=== PATIENT | male | born 1930 | race Caucasian/White ===

== ENCOUNTER 2016-11-16 07:14 | Inpatient (IN) | payer MEDICARE, OTHER ==
[~2016-11-16] VITALS: Ht 172.7 cm; Wt 113.0 kg
[2016-11-16] VITALS (14 sets, daily range): BP systolic 144–182; BP diastolic 74–95; PULSE 53–79; RESP 19–28; TEMP 96.3–98.2; O2SAT 94–100
[~2016-11-16 07:14] MED LIST: ASPI81TA82 PO; BENA10TA PO; BENA5TAB PO; BILB100C PO; CHOL1CAP6 PO; COUM4TAB7 PO; COUM5TAB PO; DYAZ37.52 PO; FISH1000 PO; HYDR50TA5 PO; METO25 PO; OMEP20TA PO; POTA-267 PO; POTA20IN3 PO; VITA100017 PO; [UNRECOGNIZED DRUG - CODE] PO
[2016-11-16 07:40] LABS: AUTOMATED NEUTROPHIL # 3.9 TH/MM3 (1.8-7.7); BASOPHIL # 0.2 TH/MM3 (0-0.2); BASOPHIL % 3.7 % (0.0-2.0); EOSINOPHIL # 0.1 TH/MM3 (0-0.4); EOSINOPHIL % 1.8 % (0.0-4.0); HEMATOCRIT 39.6 % (39.0-51.0); HEMO FLAGS DIFF FINAL; LYMPH % 21.1 % (9.0-44.0); LYMPHOCYTE # 1.3 TH/MM3 (1.0-4.8); MEAN CORPUSCULAR HEMOGLOBIN 30.8 PG (27.0-34.0); MEAN CORPUSCULAR HGB CONC 33.5 % (32.0-36.0); MONO % 7.4 % (0.0-8.0); PLATELET COUNT 109 TH/MM3 (150-450); RED BLOOD COUNT 4.31 MIL/MM3 (4.50-5.90); RED CELL DISTRIBUTION WIDTH 17.2 % (11.6-17.2); WHITE BLOOD COUNT 5.9 TH/MM3 (4.0-11.0)
--- NOTE | 2016-11-16 07:42 | PD ---
HPI Chief Complaint: Chest pain Time Seen by Provider: 07:23 Travel History International Travel<30 days: No (unknown) Contact w/Intl Traveler<30days: No (unknown) History of Present Illness HPI 86yo M with PMH of CHF and afib on coumadin presents to the ED with c/o left sided chest pain since 6am today. Pt states it is pressure like, constant and nonradiating. Started when he was sitting down. Associated with sob, nausea. Denies any fever, cough, vomiting, diaphoresis, weakness, numbness, abdominal pain. Pt follows with porter sample case Dr. Khanna and denies any previous heart attacks. Took aspirin 325mg PO this morning. Pt also took his lasix this morning. PFSH Past Medical History Hx Anticoagulant Therapy: Yes Heart Rhythm Problems: Yes (A-FIB) Cancer: Yes (PROSTATE) Cardiovascular Problems: Yes Chemotherapy: No Cerebrovascular Accident: Yes (TIA) Diabetes: No Endocrine: No Genitourinary: No Hepatitis: No Hiatal Hernia: No Hypertension: Yes Immune Disorder: No Musculoskeletal: No Neurologic: Yes Psychiatric: No Reproductive: No Respiratory: No Thyroid Disease: No Past Surgical History Abdominal Surgery: Yes (AGE 12 APPENDECTOMY ; 2007 LEFT INGUINAL HERNIA REPAIR) Genitourinary Surgery: Yes (2003 PROSTATE SEED IMPLANT; TUR-P) Social History Alcohol Use: No Tobacco Use: No Substance Use: No Allergies-Medications (Allergen,Severity, Reaction): Coded Allergies: Penicillin (Unverified Allergy, Severe, Hives, 11/16/16) Reported Meds & Prescriptions Reported Meds & Active Scripts Active Reported Magnesium 400 Mg Tab 400 Mg PO DAILY Aspirin EC (Aspirin) 325 Mg Tabdr 325 Mg PO DAILY Zinc 50 Mg Tab 50 Mg PO DAILY Furosemide 40 Mg Tab 40 Mg PO DAILY Potassium Chloride ER (Potassium Chloride) 20 Meq Tab 20 Meq PO BID Benazepril (Benazepril HCl) 20 Mg Tab 20 Mg PO DAILY Warfarin 4 Mg Tab 4.5 Mg PO DAILY Metoprolol Tartrate 50 Mg Tab 50 Mg PO BID Review of Systems Except as stated in HPI: all other systems reviewed are Neg Physical Exam Narrative GENERAL: 86yo M in mild distress. SKIN: Warm and dry. HEAD: Atraumatic. Normocephalic. NECK: Trachea midline. No JVD. CARDIOVASCULAR: Regular rate and rhythm. No murmur appreciated. RESPIRATORY: + accessory muscle use. Clear to auscultation. Breath sounds equal bilaterally. GASTROINTESTINAL: Abdomen soft, non-tender, nondistended. No rebound tenderness or guarding. MUSCULOSKELETAL: No obvious deformities. No clubbing. No cyanosis. +Bilateral lower extremity pitting edema. NEUROLOGICAL: Awake and alert. No obvious cranial nerve deficits. Motor grossly within normal limits. Normal speech. PSYCHIATRIC: Appropriate mood and affect; insight and judgment normal. Data Data Last Documented VS Vital Signs Date Time Temp Pulse Resp B/P Pulse Ox O2 Delivery O2 Flow Rate FiO2 11/16/16 07:38 170/79 11/16/16 07:37 98 Nasal Cannula 2 11/16/16 07:37 71 20 11/16/16 07:35 98.0 Orders Basic Metabolic Panel (Bmp) (11/16/16 07:31) B-Type Natriuretic Peptide (11/16/16 07:31) Ckmb (Isoenzyme) Profile (11/16/16 07:31) Complete Blood Count With Diff (11/16/16 07:31) Magnesium (Mg) (11/16/16 07:31) Prothrombin Time / Inr (Pt) (11/16/16 07:31) Act Partial Throm Time (Ptt) (11/16/16 07:31) Troponin I (11/16/16 07:31) Chest, Single Ap (11/16/16 07:31) Ecg Monitoring (11/16/16 07:31) Bilateral Bp Monitoring (11/16/16 07:31) Iv Access Insert/Monitor (11/16/16 07:31) Oximetry (11/16/16 07:31) Oxygen Administration (11/16/16 07:31) Sodium Chloride 0.9% Flush (Ns Flush) (11/16/16 07:45) Nitroglycerin Sl (Nitrostat Sl) (11/16/16 07:45) Furosemide Inj (Lasix Inj) (11/16/16 08:00) Potassium Chloride (Kcl) (11/16/16 08:00) Admit Order (Ed Use Only) (11/16/16 08:39) Labs Laboratory Tests Test 11/16/16 07:25 White Blood Count 5.9 TH/MM3 Red Blood Count 4.31 MIL/MM3 Hemoglobin 13.3 GM/DL Hematocrit 39.6 % Mean Corpuscular Volume 92.0 FL Mean Corpuscular Hemoglobin 30.8 PG Mean Corpuscular Hemoglobin 33.5 % Concent Red Cell Distribution Width 17.2 % Platelet Count 109 TH/MM3 Mean Platelet Volume 8.9 FL Neutrophils (%) (Auto) 66.0 % Lymphocytes (%) (Auto) 21.1 % Monocytes (%) (Auto) 7.4 % Eosinophils (%) (Auto) 1.8 % Basophils (%) (Auto) 3.7 % Neutrophils # (Auto) 3.9 TH/MM3 Lymphocytes # (Auto) 1.3 TH/MM3 Monocytes # (Auto) 0.4 TH/MM3 Eosinophils # (Auto) 0.1 TH/MM3 Basophils # (Auto) 0.2 TH/MM3 CBC Comment DIFF FINAL Differential Comment Prothrombin Time 17.2 SEC Prothromb Time International 1.5 RATIO Ratio Activated Partial 38.3 SEC Thromboplast Time Sodium Level 144 MEQ/L Potassium Level 3.2 MEQ/L Chloride Level 109 MEQ/L Carbon Dioxide Level 26.2 MEQ/L Anion Gap 9 MEQ/L Blood Urea Nitrogen 24 MG/DL Creatinine 1.20 MG/DL Estimat Glomerular Filtration 57 ML/MIN Rate Random Glucose 139 MG/DL Calcium Level 8.9 MG/DL Magnesium Level 2.4 MG/DL Total Creatine Kinase 39 U/L Troponin I 0.07 NG/ML B-Type Natriuretic Peptide 479 PG/ML MDM Medical Decision Making Medical Screen Exam Complete: Yes Emergency Medical Condition: Yes Interpretation(s) EKG: NSR 92bpm. +PVC. LAD. LBBB, similar to previous 11/2014. No concordance. Laboratory Tests Test 11/16/16 07:25 White Blood Count 5.9 TH/MM3 (4.0-11.0) Red Blood Count 4.31 MIL/MM3 (4.50-5.90) Hemoglobin 13.3 GM/DL (13.0-17.0) Hematocrit 39.6 % (39.0-51.0) Mean Corpuscular Volume 92.0 FL (80.0-100.0) Mean Corpuscular Hemoglobin 30.8 PG (27.0-34.0) Mean Corpuscular Hemoglobin 33.5 % Concent (32.0-36.0) Red Cell Distribution Width 17.2 % (11.6-17.2) Platelet Count 109 TH/MM3 (150-450) Mean Platelet Volume 8.9 FL (7.0-11.0) Neutrophils (%) (Auto) 66.0 % (16.0-70.0) Lymphocytes (%) (Auto) 21.1 % (9.0-44.0) Monocytes (%) (Auto) 7.4 % (0.0-8.0) Eosinophils (%) (Auto) 1.8 % (0.0-4.0) Basophils (%) (Auto) 3.7 % (0.0-2.0) Neutrophils # (Auto) 3.9 TH/MM3 (1.8-7.7) Lymphocytes # (Auto) 1.3 TH/MM3 (1.0-4.8) Monocytes # (Auto) 0.4 TH/MM3 (0-0.9) Eosinophils # (Auto) 0.1 TH/MM3 (0-0.4) Basophils # (Auto) 0.2 TH/MM3 (0-0.2) CBC Comment DIFF FINAL Differential Comment Prothrombin Time 17.2 SEC (9.8-11.6) Prothromb Time International 1.5 RATIO Ratio Activated Partial 38.3 SEC Thromboplast Time (24.3-30.1) Sodium Level 144 MEQ/L (136-145) Potassium Level 3.2 MEQ/L (3.5-5.1) Chloride Level 109 MEQ/L (98-107) Carbon Dioxide Level 26.2 MEQ/L (21.0-32.0) Anion Gap 9 MEQ/L (5-15) Blood Urea Nitrogen 24 MG/DL (7-18) Creatinine 1.20 MG/DL (0.60-1.30) Estimat Glomerular Filtration 57 ML/MIN (>89) Rate Random Glucose 139 MG/DL (74-106) Calcium Level 8.9 MG/DL (8.5-10.1) Magnesium Level 2.4 MG/DL (1.5-2.5) Total Creatine Kinase 39 U/L (39-308) Troponin I 0.07 NG/ML (0.02-0.05) B-Type Natriuretic Peptide 479 PG/ML (0-100) Differential Diagnosis ACS vs. CHF exacerbation vs. PNA Narrative Course 86yo M with typical chest pain concerning for ACS. Labs reviewed, no leukocytosis. K: 3.2, replaced orally with 60mE1 KCl. Troponin mildly elevated at 0.07, will trend. BNP 479. INR subtherapeutic at 1.5. CXR: moderate congestive heart failure. Pt given lasix 40mg IV here in the ED. Pt also given sublingual nitro for chest pain. Discussed with Dr. Khanna who recommended to trend troponin and transfer pt to [facility] for possible cardiac cath. Discussed with JAMARI Hdez who covers hepas. Diagnosis Primary Impression: Chest pain Qualified Code: R07.9 - Chest pain, unspecified type Admitting Information Admitting Physician Requests: it Sera Terrazas DO Nov 16, 2016 07:42
[2016-11-16] MEDS ORDERED: SODIUM CHLORIDE 0.9% FLUSH 5 ML FLUSH IVF PRN ×2 (07:45→08:45)
[2016-11-16] MEDS ORDERED: NITROGLYCERIN 0.4 MG SL 25 TABS/BTL SL PRN ×2 (07:45→11:30)
[2016-11-16 07:47] LABS: POTASSIUM 3.2 MEQ/L (3.5-5.1)
[2016-11-16 07:50] LABS: BICARBONATE 26.2 MEQ/L (21.0-32.0); MAGNESIUM 2.4 MG/DL (1.5-2.5)
[2016-11-16] MEDS ORDERED: FURO40TA PO (07:51)
[2016-11-16] MEDS ORDERED: ASPI325T33 PO (07:51)
[2016-11-16] MEDS ORDERED: POTA-163 PO (07:51)
[2016-11-16] MEDS ORDERED: BENA20TA PO (07:51)
[2016-11-16] MEDS ORDERED: WARF-20 PO (07:51)
[2016-11-16] MEDS ORDERED: METO50TA PO (07:51)
[2016-11-16] MEDS ORDERED: ZINC50TA PO (07:51)
[2016-11-16] MEDS ORDERED: MAGN1TAB14 PO (07:51)
--- NOTE | 2016-11-16 07:53 | RADHPO ---
EXAM DATE/TIME: 11/16/2016 07:48 [facility] COMPARISON: CHEST SINGLE AP, December 09, 2015, 10:42. INDICATIONS : Short of breath, chest pressure. MEDICAL HISTORY : Hypertension. Congestive heart failure. SURGICAL HISTORY : None. ENCOUNTER: Initial ACUITY: 2 days PAIN SCORE: 1/10 LOCATION: Bilateral chest FINDINGS: There is cardiomegaly with moderate congestive failure. There is no evidence of consolidation or ple ural effusion. The portion of the bony skeleton visualized is unremarkable. CONCLUSION: Moderate congestive failure. Sg Ordaz MD FACR on November 16, 2016 at 7:51 Board Certified Radiologist. This report was verified electronically.
[2016-11-16 07:58] LABS: APTT (PATIENT) 38.3 SEC (24.3-30.1); INTERNATIONAL NORMALIZED RATIO 1.5 RATIO; PROTHROMBIN TIME - PATIENT 17.2 SEC (9.8-11.6)
[2016-11-16] MEDS ORDERED: FUROSEMIDE 40 MG/4 ML VIAL IV PUSH ONE ×2 (08:00→08:45)
[2016-11-16] MEDS ORDERED: POTASSIUM CHLORIDE 20 MEQ CONTROLLED RELEASE TAB PO ONE (08:00)
[2016-11-16] MEDS ORDERED: POTASSIUM CHLORIDE 20 MEQ CONTROLLED RELEASE TAB PO SCH (09:00)
[2016-11-16] MEDS: ASPIRIN EC 325 MG TABEC PO SCH (09:15)
[2016-11-16] MEDS: SODIUM CHLORIDE 0.9% FLUSH 5 ML FLUSH IVF SCH ×2 (09:45→21:59)
[2016-11-16] MEDS ORDERED: DO NOT ADM ANY ANTICOAGULANT DRUGS XX PRN (10:45)
[2016-11-16] MEDS ORDERED: ENOXAPARIN SODIUM 100 MG/ML SYRINGE SQ ONE (11:30)
--- NOTE | 2016-11-16 11:31 | HHI.HP ---
[facility] Primary [facility] Physician Ishan Cruz MD Admission Diagnosis Chest pain Diagnoses: (1) Chest pain Diagnosis: Principal (2) Acute on chronic diastolic congestive heart failure Diagnosis: Principal (3) Elevated troponin Diagnosis: Principal (4) Lower extremity edema Diagnosis: Secondary (5) Atrial fibrillation Diagnosis: Secondary (6) Hypertension Diagnosis: Secondary (7) Hyperlipidemia Diagnosis: Secondary Chief Complaint: Chest pain Travel History International Travel<30 Days: No (unknown) Contact w/Intl Traveler <30 Da: No (unknown) Traveled to Known Affected Are: No History of Present Illness 86-year-old male with known history of hypertension, hyperlipidemia, chronic atrial fibrillation, history of prostate cancer, history of CVA, gastroesophageal reflux who presented to hospital because of chest pain. Patient does have rather complex cardiac history in which he usually does not leave the house on a daily basis. Usually sits in his chair throughout the day , sleeps in bed. They do have a healthcare attendant that is their on a daily basis. Apparently this morning at approximately 6 AM the patient was watching the news and started developing a pressure type sensation in left part of his chest with associated nausea. Patient denies any vomiting, diaphoresis, radiation of discomfort. Patient describes the pain as a 2/10 on a pain scale. Patient has shortness of breath all the time so he could not indicate it is associated with his chest discomfort. However he has had worsening shortness of breath over the last week. Patient has chronically swollen lower extremities in which he cannot indicated they have gotten larger. Patient denies any orthopnea, could not indicate any worsening dyspnea on exertion. Patient was brought to the hospital by family member. Had evaluation done which does show signs of congestive heart failure, elevated troponin. ER physician did contact patient's granulator tender Dr. Khanna, who recommended patient be admitted at [facility] for possible cardiac catheterization. At the time evaluating the patient he still has shortness of breath. He is no longer experiencing chest discomfort. That resolved once he got to the hospital. Review of Systems Constitutional: DENIES: Diaphoretic episodes, Fatigue, Fever, Weight gain, Weight loss, Chills, Dizziness, Change in appetite, Night Sweats Eyes: DENIES: Blurred vision, Diplopia, Eye inflammation, Eye pain, Vision loss , Double Vision Ears, nose, mouth, throat: DENIES: Vertigo, Nasal discharge, Throat pain, Ear Pain, Running Nose, Sinus Pain Respiratory: COMPLAINS OF: Shortness of breath, DENIES: Apneas, Cough, Snoring , Wheezing, Hemoptysis, Sputum production Cardiovascular: COMPLAINS OF: Chest pain, DENIES: Palpitations, Syncope, Dyspnea on Exertion, PND, Lower Extremity Edema, Orthopnea, Claudication Gastrointestinal: DENIES: Abdominal pain, Black stools, Bloody stools, Constipation, Diarrhea, Nausea, Vomiting, Difficulty Swallowing, Anorexia Neurologic: DENIES: Abnormal gait, Headache, Localized weakness, Paresthesias, Seizures, Speech Problems, Tremor, Poor Balance Psychiatric: DENIES: Anxiety, Confusion, Mood changes, Depression Past Family Social History Past Medical History Hypertension Hyperlipidemia chronic afibrillation Gastroesophageal reflux History of prostate cancer History of CVA Past Surgical History Selective left femoral angiography Appendectomy Left inguinal hernia repair Prostate seed implant TURP Reported Medications Reported Meds & Active Scripts Active Reported Magnesium 400 Mg Tab 400 Mg PO DAILY Aspirin EC (Aspirin) 325 Mg Tabdr 325 Mg PO DAILY Zinc 50 Mg Tab 50 Mg PO DAILY Furosemide 40 Mg Tab 40 Mg PO DAILY Potassium Chloride ER (Potassium Chloride) 20 Meq Tab 20 Meq PO BID Benazepril (Benazepril HCl) 20 Mg Tab 20 Mg PO DAILY Warfarin 4 Mg Tab 4.5 Mg PO DAILY Metoprolol Tartrate 50 Mg Tab 50 Mg PO BID Allergies: Coded Allergies: Penicillin (Unverified Allergy, Severe, Hives, 11/16/16) Family History Reviewed and grossly unremarkable. Patient states that he is oldest of all the brothers who are all in good health Social History Patient denies any tobacco, alcohol or illicit drugs Physical Exam Vital Signs Vital Signs Date Time Temp Pulse Resp B/P Pulse Ox O2 Delivery O2 Flow Rate FiO2 11/16/16 09:50 53 22 157/80 96 Nasal Cannula 4 11/16/16 07:38 170/79 11/16/16 07:37 98 Nasal Cannula 2 11/16/16 07:37 71 20 160/74 96 Nasal Cannula 2 11/16/16 07:35 98.0 79 20 170/79 96 11/16/16 07:35 79 20 96 Nasal Cannula 4 Physical Exam GENERAL: Well-developed, well-nourished, in no acute distress. alert and orientated HEENT: Head is normocephalic without any lesions or masses noted. Facial features are symmetric. Eyes: Pupils equal round reactive to light. Extraocular muscles are intact. Conjunctivae were clear. Oropharyngeal: Pharynx without any erythema edema. Tongue is midline without deviation. Buccal mucosa is moist without any masses or lesions NECK: Supple without any masses. Trachea midline no deviation. No JVD, no bruits are appreciated CARDIAC: Regular rhythm, regular rate. S1/S2 are heard. 2/6 ejection murmur, no gallops or rubs. LUNGS: Crackles noted in the bases. No wheeze, rhonchi or rales. No use of accessory muscles on inspiration or expiration. ABDOMEN: Soft, nontender. Nondistended. Bowel sounds heard in all 4 quadrants. No organomegaly or masses. Negative rebound, negative guarding EXTREMITIES:pulses are equal bilaterally. No cyanosis or clubbing. Significant lower extremity edema right 3+ greater than left 2+ NEUROLOGY: Mood and affect appear appropriate. Cranial nerves II through XII grossly intact. Muscle strength 5/5 in upper and lower extremities bilaterally. Deep tendon reflexes are 2+ in upper and lower extremities bilaterally. Laboratory Laboratory Tests Test 11/16/16 07:25 White Blood Count 5.9 Red Blood Count 4.31 Hemoglobin 13.3 Hematocrit 39.6 Mean Corpuscular Volume 92.0 Mean Corpuscular Hemoglobin 30.8 Mean Corpuscular Hemoglobin 33.5 Concent Red Cell Distribution Width 17.2 Platelet Count 109 Mean Platelet Volume 8.9 Neutrophils (%) (Auto) 66.0 Lymphocytes (%) (Auto) 21.1 Monocytes (%) (Auto) 7.4 Eosinophils (%) (Auto) 1.8 Basophils (%) (Auto) 3.7 Neutrophils # (Auto) 3.9 Lymphocytes # (Auto) 1.3 Monocytes # (Auto) 0.4 Eosinophils # (Auto) 0.1 Basophils # (Auto) 0.2 CBC Comment DIFF FINAL Differential Comment Prothrombin Time 17.2 Prothromb Time International 1.5 Ratio Activated Partial 38.3 Thromboplast Time Sodium Level 144 Potassium Level 3.2 Chloride Level 109 Carbon Dioxide Level 26.2 Anion Gap 9 Blood Urea Nitrogen 24 Creatinine 1.20 Estimat Glomerular Filtration 57 Rate Random Glucose 139 Calcium Level 8.9 Magnesium Level 2.4 Total Creatine Kinase 39 Troponin I 0.07 B-Type Natriuretic Peptide 479 Result Diagram: 11/16/1672411/16/16724 Imaging Last Impressions Chest X-Ray 11/16/16730 Signed Impressions: Service Date/Time: Wednesday, November 16, 2016 07:48 - CONCLUSION: Moderate congestive failure. Sg Ordaz MD FACR Assessment and Plan Assessment and Plan Chest pain with elevated troponin Continue trending cardiac enzymes to rule out any acute coronary event Continue evaluate serial EKGs to evaluate for any changes ER physician discussed with Dr. Khanna who recommended the patient be admitted to the main for possible catheterization. Dr. Khanna was consulted Continue aspirin, beta maki, nitroglycerin as needed, IRMA inhibitor, give 1 dose Lovenox Obtain lipid panel Acute on chronic diastolic congestive heart failure Chest x-ray does show signs of mild congestive failure BNP 479 Continue diuresis with Lasix 40 mg IV every 12 hours Continue IRMA inhibitor Patient with previous echocardiogram 12/10/15. Does show systolic function lower limits. Ejection fraction 50-50%. Grade 1 diastolic dysfunction. Mild- to-moderate aortic regurgitation, mild mitral valve regurgitation, right ventricle mildly dilated, PA peak pressure 80 mmhg Obtain echocardiogram Chronic atrial fibrillation, rate controlled Resumed beta maki and anticoagulation with Coumadin INR 1.5, will give Lovenox 1 dose, monitor PT/INR Hypertension -Resume home medications DVT prevention -patient anticoagulated with Coumadin, INR 1.5, Written by Alberto Hdez PA-C, acting as scribe for Dr. Carvajal on 11/16/16 at 1120. The documentation accurately reflects the work and decisions performed face-to- face by Dr. Carvajal on 11/16/16 at 1120. Physician Certification 2 Midnight Certification Type: Admission for Inpatient Services Order for Inpatient Services The services are ordered in accordance with Medicare regulations or non- Medicare payer requirements, as applicable. In the case of services not specified as inpatient-only, they are appropriately provided as inpatient services in accordance with the 2-midnight benchmark. Estimated LOS (days): 3 days is the estimated time the patient will need to remain in the hospital, assuming treatment plan goals are met and no additional complications. Post-Hospital Plan: Not yet determined Problem Qualifiers (1) Chest pain: Qualified Code: R07.9 - Chest pain, unspecified type (2) Lower extremity edema: Qualified Code: R60.0 - Bilateral edema of lower extremity (3) Atrial fibrillation: Qualified Code: I48.91 - Atrial fibrillation, unspecified type (4) Hypertension: Qualified Code: I15.9 - Secondary hypertension (5) Hyperlipidemia: Qualified Code: E78.5 - Hyperlipidemia, unspecified hyperlipidemia type Alberto Hdez Nov 16, 2016 11:31
[2016-11-16] MEDS: FUROSEMIDE 40 MG/4 ML VIAL IVP SCH (18:30)
[2016-11-16] MEDS ORDERED: METOPROLOL TARTRATE 50 MG TAB PO SCH (21:00)
[2016-11-16] MEDS: POTASSIUM CHLORIDE 20 MEQ CONTROLLED RELEASE TAB PO SCH (21:59)
[2016-11-17] VITALS (14 sets, daily range): BP systolic 118–187; BP diastolic 66–81; PULSE 60–210; RESP 24–38; TEMP 98–103; O2SAT 93–98
[2016-11-17 04:27] LABS: INTERNATIONAL NORMALIZED RATIO 1.6 RATIO; PROTHROMBIN TIME - PATIENT 18.1 SEC (9.8-11.6)
[2016-11-17 04:37] LABS: BASOPHIL # 0.1 TH/MM3 (0-0.2); BASOPHIL % 1.2 % (0.0-2.0); EOSINOPHIL # 0.2 TH/MM3 (0-0.4); EOSINOPHIL % 1.8 % (0.0-4.0); HEMATOCRIT 40.4 % (39.0-51.0); HEMO FLAGS DIFF FINAL; LYMPH % 11.5 % (9.0-44.0); MEAN CELL VOLUME 91.6 FL (80.0-100.0); MEAN CORPUSCULAR HEMOGLOBIN 31.3 PG (27.0-34.0); MEAN CORPUSCULAR HGB CONC 34.2 % (32.0-36.0); MONO % 7.6 % (0.0-8.0); NEUT % 77.9 % (16.0-70.0); PLATELET COUNT 128 TH/MM3 (150-450); RED BLOOD COUNT 4.41 MIL/MM3 (4.50-5.90); RED CELL DISTRIBUTION WIDTH 17.5 % (11.6-17.2)
[2016-11-17 05:28] LABS: POTASSIUM 4.3 MEQ/L (3.5-5.1)
[2016-11-17] MEDS: ONDANSETRON HCL 4 MG/2 ML VIAL IV PUSH PRN ×2 (06:11→18:05)
--- NOTE | 2016-11-17 06:23 | HHI.PR ---
Addendum To [facility] Progress Not Reason for addendum: Additonal documentation (The pt was transferred to the main hospital after cardiology was made aware of EKG changes. The nut tightener stated that no intervention was indicated but that the pt should be transferred to the main hospital. The pt had bloody output from his Nuñez and started dryheaving. He was also tachycardic. His Lopressor was retimed. He was started on a heparin gtt. A urology consult was placed. Hemoglobin has been stable. Cardiology will follow up with pt this morning. ) Galdino Cuevas DO Nov 17, 2016 06:23
[2016-11-17] MEDS: METOPROLOL TARTRATE 50 MG TAB PO SCH ×3 (06:30→20:07)
[2016-11-17] MEDS ORDERED: HEPARIN-D5W INJ 250 ML IV SCH (06:30)
[2016-11-17] MEDS ORDERED: ENALAPRILAT 1.25 MG/ML VIAL IV PUSH PRN (06:30)
[2016-11-17 06:46] LABS: BLOOD GAS BASE EXCESS -4.1 mmol/L (-2-2); BLOOD GAS CARBOXYHEMOGLOBIN 1.5 % (0-4); BLOOD GAS HCO3 19 mmol/L (22-26); BLOOD GAS METHEMOGLOBIN 0.7 % (0-2); BLOOD GAS O2 HGB SATURATION 89 % (90-100); BLOOD GAS OXYGEN CONTENT 17.1 Vol % (12.0-20.0); BLOOD GAS PCO2 30 mmHg (38-42); BLOOD GAS PO2 60 mmHg (61-120); BLOOD GAS TOTAL HGB 13.7 G/DL (12.0-16.0); TEMP CORR TO 98.6
[2016-11-17 06:48] LABS: CRITICAL VALUE YES; OXYGEN DEVICE BiPAP
[2016-11-17 06:49] LABS: DRAW SITE RT RADIAL; LITER FLOW 7 L/M; NUMBER OF ARTERIAL PUNCTURES 1; STAT YES; ULNAR PULSE PRESENT; VENT SETTINGS CPAP OF 10
--- NOTE | 2016-11-17 07:14 | RADRPT ---
EXAM DATE/TIME: 11/17/2016 06:45 [facility] COMPARISON: CHEST SINGLE AP, November 16, 2016, 7:48. INDICATIONS : Shortness of breath. MEDICAL HISTORY : Hypertension. Congestive heart failure. SURGICAL HISTORY : None. ENCOUNTER: Subsequent ACUITY: 2 days PAIN SCORE: Non-responsive. LOCATION: Bilateral chest FINDINGS: A single view of the chest demonstrates cardiomegaly with increased pulmonary vascularity and interst itial edema. There is some minimal bibasilar airspace disease. The cardiomediastinal contours are unr emarkable. Osseous structures are intact. CONCLUSION: Cardiomegaly with interstitial edema and bibasilar airspace disease, consistent with CHF. There is sl ight improvement on current study. Osito Gomez MD on November 17, 2016 at 7:11 Board Certified Radiologist. This report was verified electronically.
[2016-11-17] MEDS ORDERED: MORPHINE SULFATE 4 MG/ML INJ IV PUSH PRN (08:00)
[2016-11-17] MEDS: FUROSEMIDE 40 MG/4 ML VIAL IVP SCH ×2 (08:14→18:00)
[2016-11-17] MEDS ORDERED: LIDOCAINE 2% JELLY 5 ML TUBE OTHER SCH (08:45)
[2016-11-17] MEDS: POTASSIUM CHLORIDE 20 MEQ CONTROLLED RELEASE TAB PO SCH ×2 (09:00→20:07)
[2016-11-17] MEDS: SODIUM CHLORIDE 0.9% FLUSH 5 ML FLUSH IVF SCH ×2 (09:00→20:07)
[2016-11-17] MEDS: ASPIRIN EC 325 MG TABEC PO SCH (09:00)
[2016-11-17] MEDS: LISINOPRIL 20 MG TAB PO SCH (09:00)
[2016-11-17 09:03] LABS: APTT (PATIENT) 30.4 SEC (24.3-30.1)
[2016-11-17] MEDS ORDERED: LIDOCAINE HCL 2% JELLY 5 ML SYRINGE TOPICAL ONE (09:15)
[2016-11-17] MEDS: ACETAMINOPHEN 1000 MG/100 ML VIAL IV PRN (09:55)
--- NOTE | 2016-11-17 11:49 | HHI.PR ---
Subjective Remarks with some sob although in no acute distress. had a fever of 103 earlier today. denies chest pain. d/w the RN. family at the bedside. Objective Vitals Vital Signs Date Time Temp Pulse Resp B/P Pulse Ox O2 Delivery O2 Flow Rate FiO2 11/17/16 10:00 89 11/17/16 08:00 103.0 210 26 172/79 97 11/17/16 08:00 134 11/17/16 06:00 124 11/17/16 04:00 98.0 78 28 187/78 94 11/17/16 04:00 78 11/17/16 02:00 60 11/17/16 00:57 98 BiPAP 2.00 11/17/16 00:00 98.0 68 24 152/70 95 11/17/16 00:00 68 11/16/16 23:15 98.0 58 25 162/77 96 11/16/16 20:30 68 20 161/80 97 11/16/16 20:00 96.3 69 28 182/95 95 11/16/16 19:59 76 11/16/16 19:53 94 Nasal Cannula 2.00 11/16/16 16:50 98 Nasal Cannula 2.00 11/16/16 16:30 99 Nasal Cannula 4.00 11/16/16 16:00 98.2 59 19 144/82 97 11/16/16 13:30 96.4 66 20 160/88 95 11/16/16 12:40 68 20 171/84 100 Nasal Cannula 4 I/O 11/16/16 11/16/16 11/16/16 11/17/16 11/17/16 11/17/16 07:00 15:00 23:00 07:00 15:00 23:00 Intake Total 240 ml Output Total 300 ml 500 ml 200 ml Balance -300 ml -500 ml 40 ml Intake Oral 240 ml Output Urine Total 300 ml 500 ml 200 ml Bladder Scan Volume Amount 186 ml 294 ml # Bowel Movements 1 0 2 Result Diagram: 11/17/16 0355 11/17/16 0355 Imaging Last Impressions Chest X-Ray 11/17/16 0000 Signed Impressions: Service Date/Time: Thursday, November 17, 2016 06:45 - CONCLUSION: Cardiomegaly with interstitial edema and bibasilar airspace disease, consistent with CHF. There is slight improvement on current study. Osito Gomez MD Objective Remarks GENERAL: with some sob, in no apparent distress. CARDIOVASCULAR: Regular rate and regular rhythm without murmurs, gallops, or rubs. RESPIRATORY: Clear to auscultation. Breath sounds equal bilaterally. No wheezes , rales, or rhonchi. GASTROINTESTINAL: Abdomen soft, non-tender, nondistended. Normal, active bowel sounds MUSCULOSKELETAL: Extremities without clubbing, cyanosis, or edema. NEURO: Alert & Oriented x4 to person, place, time, situation. Moves all ext x4 Procedures esquivel insertion and urethral dilatation Medications and IVs Current Medications IV Flush (NS Flush) 2 ml UNSCH PRN IVF FLUSH AFTER USING IV ACCESS; Start 11/16 at 07:45; Stop 11/16/16 at 08:51; Status DC Nitroglycerin (Nitrostat Sl) 0.4 mg Q5M PRN SL CHEST PAIN; Start 11/16/16 at 07 :45; Stop 11/16/16 at 11:41; Status DC Furosemide (Lasix Inj) 40 mg ONCE ONCE IV PUSH ; Start 11/16/16 at 08:00; Stop 11/16/16 at 08:00; Status DC Potassium Chloride (KCl) 60 meq ONCE ONCE PO Last administered on 11/16/16 09 :44; Start 11/16/16 at 08:00; Stop 11/16/16 at 08:01; Status DC Furosemide (Lasix Inj) 40 mg ONCE ONCE IV PUSH Last administered on 11/16/16 09:44; Start 11/16/16 at 08:45; Stop 11/16/16 at 08:46; Status DC IV Flush (NS Flush) 2 ml BID IVF Last administered on 11/17/16 09:00; Start at 09:00 IV Flush (NS Flush) 2 ml UNSCH PRN IVF FLUSH AFTER USING IV ACCESS Last administered on 11/16/16 18:33; Start 11/16/16 at 08:45 Furosemide (Lasix Inj) 40 mg BID@,18 IVP Last administered on 11/17/16 08:14 ; Start 11/16/16 at 18:00 Potassium Chloride (KCl) 20 meq BID PO ; Start 11/16/16 at 09:00; Stop 11/16/16 at 09:08; Status DC Potassium Chloride (KCl) 20 meq BID PO Last administered on 11/16/16 21:59; Start 11/16/16 at 21:00 Aspirin (Ecotrin Ec) 325 mg DAILY PO ; Start 11/16/16 at 09:15 Lisinopril (Prinivil) 20 mg DAILY PO ; Start 11/17/16 at 09:00 Metoprolol Tartrate (Lopressor) 50 mg BID PO Last administered on 11/16/16 21: 59; Start 11/16/16 at 21:00; Stop 11/17/16 at 06:17; Status DC Warfarin Sodium (Coumadin) 4.5 mg DAILY@16 PO ; Start 11/17/16 at 16:00; Stop at 16:00; Status DC Miscellaneous Information ALL NURSING DEPARTME... UNSCH PRN XX SEE LABEL COMMENTS; Start 11/16/16 at 10:45; Stop 11/17/16 at 10:44; Status DC Patient Medication Teaching (Coumadin Booklet) 1 ONCE ONCE XX Last administered on 11/16/16 16:49; Start 11/16/16 at 16:00; Stop 11/17/16 at 07:34 ; Status DC Enoxaparin Sodium (Lovenox Inj) 100 mg ONCE ONCE SQ Last administered on 12:33; Start 11/16/16 at 11:30; Stop 11/16/16 at 11:40; Status DC Nitroglycerin (Nitrostat Sl) 0.4 mg Q5M PRN SL CHEST PAIN; Start 11/16/16 at 11 :30 Ondansetron HCl (Zofran Inj) 4 mg Q6HR PRN IV PUSH NAUSEA OR VOMITING Last administered on 11/17/16 06:11; Start 11/17/16 at 06:15 Metoprolol Tartrate 50 mg 50 mg BID PO ; Start 11/17/16 at 06:30 Heparin Sodium/ Dextrose (Heparin-D5W Inj) 250 ml @ 0 mls/hr TITRATE IV ; Start 11/17/16 at 06:30; Stop 11/17/16 at 07:34; Status DC Enalaprilat (Vasotec Inj) 1.25 mg Q6H PRN IV PUSH SBP> OR = 180, DBP> OR = 100 ; Start 11/17/16 at 06:30 Morphine Sulfate (Morphine Inj) 2 mg Q15M PRN IV PUSH any pain 1-10 Last administered on 11/17/16 08:14; Start 11/17/16 at 08:00 Lidocaine HCl (Xylocaine 2% Jelly) 1 applic MECHANICAL SYSTEMS ENGINEER OTHER ; Start 11/17/16 at 08:45; Stop 11/18/16 at 08:44 Lidocaine HCl (Xylocaine 2% Jelly) 5 ml ONCE ONCE TOPICAL ; Start 11/17/16 at 09:15; Stop 11/17/16 at 09:16; Status DC Acetaminophen (Ofirmev Inj) 1,000 mg Q12H PRN IV TEMPERATURE > 101.1 F Last administered on 11/17/16 09:55; Start 11/17/16 at 09:45 A/P Assessment and Plan A/P -STEMI Continue aspirin, beta maki, nitroglycerin as needed, IRMA inhibitor. -anticoagulation on hold because of hematuria Obtain lipid panel Acute on chronic diastolic congestive heart failure Chest x-ray does show signs of mild congestive failure Continue diuresis with Lasix 40 mg IV every 12 hours Continue IRMA inhibitor Patient with previous echocardiogram 12/10/15. Does show systolic function lower limits. Ejection fraction 50-50%. Grade 1 diastolic dysfunction. Mild- to-moderate aortic regurgitation, mild mitral valve regurgitation, right ventricle mildly dilated, PA peak pressure 80 mmhg Obtain echocardiogram Hematuria s/p esquivel cath insertion and urethral dilatation in OR anticoagulation on hold urology following. fever- suspect UTI start work up with obtaining the urine and blood cultures-start IV Abx empirically- will monitor temps CXR with improved CHF Chronic atrial fibrillation, rate controlled Resumed beta maki - anticoagulation on hold due to hematuria Hypertension -Resumed home medications DVT prevention -SCD's will keep in ICU. planer operator consulted. Milad Gates MD Nov 17, 2016 11:49
--- NOTE | 2016-11-17 11:55 | MH ---
cc: CALLIE BEAN DATE OF ADMISSION: 11/16/2016 ADMITTING DIAGNOSIS: Attending operative bladder mass. HISTORY AND PHYSICAL Inpatient heart rate Carina Garber CRD wide ALLERGIES Mr. Lopez is a pleasant 86-year-old male history of prostate cancer presents with a chest pain and is ruling in for myocardial infarction. Apparently a Nuñez was attempted down to [facility] and the Nuñez was blown up in the urethra. He has been having blood around the Nuñez catheter and a Nuñez catheter was not draining and it is unable to be irrigated. Urology was consulted to place a Nuñez catheter at the bedside I attempted a 16 to day which would not pass the prostate and tried a Bard the urethral catheter set and was unable to pass small filiformes into the urethra. The patient will need a the operating room emergently to have a cystoscopy and Nuñez catheter placed over a wire. PAST MEDICAL HISTORY: 1. His medical history includes hypertension. 2. Hyperlipidemia. 3. Chronic atrial fibrillation. 4. Gastroesophageal reflux disease. 5. Prostate cancer. 5. History of cerebrovascular accident. PAST SURGICAL HISTORY: Appendectomy. Transurethral resection of the prostate. Prostatic seed implantation. Left femoral angiography. MEDICATIONS: Please refer to the chart. ALLERGIES PENICILLIN SOCIAL HISTORY Denies any smoking, drinking using drugs. FAMILY HISTORY: family history is noncontributory. REVIEW OF SYSTEMS VITAL SIGNS: Presently he is afebrile times 98, heart rate 78, respiratory rate 28, was a blood pressure is was 187/78. For review of systems a 12-point review of systems was taken and negative per the HPI. PHYSICAL EXAMINATION IN GENERAL: He is well-developed, well-nourished 86-year-old male in moderate distress on 100% rebreather. HEAD, EYES, EARS, NOSE, AND THROAT: normocephalic, atraumatic. Pupils equal round reactive to light. NECK: The neck is supple. HEART: The heart rate is regular rate and rhythm. LUNGS: Crackles are noted at the bases but breath sounds are noted bilaterally. ABDOMEN: Soft. Bladder is distended on exam. GENITOURINARY: Uncircumcised phallus. Testes are descended. EXTREMITIES: The extremities show no cyanosis, clubbing, there is some edema 2+ bilaterally. LABORATORY FINDINGS: White count 5.9, hemoglobin 13.3, hematocrit 39.6, platelet count 109, sodium 144, potassium 3.2, chloride 109, CO2 26.2, BUN 24, creatinine 1.2, glucose of 139. ASSESSMENT: A 86-year-old male admitted with chest pain and elevated troponin ruling in for CA with history of prostate cancer and prior TURP with traumatic Nuñez insertion. PLAN: The patient will require cystoscopic examination in the operating room with Nuñez placement over a wire, in order to secure its position. Thank for the consult and allowing to participate in the care of this patient. Callie Rangel /9:10 AM /11:01 AM MTDD
[2016-11-17] MEDS: LEVOFLOXACIN 500 MG PREMIX INJ 100 ML IV SCH (12:00)
[2016-11-17 13:39] LABS: BACTERIA, URINE MANY /hpf; BLOOD, URINE LARGE (NEG); GLUCOSE,URINE NEG (NEG); HYALINE CAST, URINE 2 /lpf (RARE); KETONE, URINE NEG (NEG); MUCUS URINE FEW /lpf (OCC); NITRITE,URINE NEG (NEG); PH, URINE 5.5 (5.0-8.5); URINE COLOR YELLOW (YELLW/STRAW)
[2016-11-17 13:40] LABS: COMMENT (UR) CATH-CULTURE IND; CULTURE IF INDICATED CATH CULTURE IND
--- NOTE | 2016-11-17 14:28 | EKG ---
Date Performed: 11/17/2016 Time Performed: 06:31:26 PTAGE: 86 years EKG: Probable atrial fibrillation with controlled response LEFT ventricular conduction defect CO MPARED TO PRIOR ELECTROCARDIOGRAM, prior electrocardiogram has unclear underlying rhythm. It did rangel ve a RIGHT bundle branch morphology which is possibly concerning for alternating bundle branch blocks . Clinical correlation suggested. Abnormal ECG PREVIOUS TRACING : 11/16/2016 20.21 DOCTOR: Cristhian Brooks Interpretating Date/Time 11/17/2016 14:26:42
--- NOTE | 2016-11-17 14:34 | PD.CONS ---
HPI Service Cardiology Physicians Consult Requested By JEANNIE Hdez Reason for Consult Chest pain, CHF, elevated troponin Primary Care Physician Ishan Cruz MD History of Present Illness Late entry. Patient seen and evaluated at 0900. The patient is an 86 year old male with cardiac history of atrial fibrillation, TIa chronic diastolic CHF, PAD, Moderate AI, Moderate MR and hypertension. The patient is DNR status. The patient presented to [facility] with chest pain associated with nausea and edema. Troponin slightly elevated. He had evidence of CHF exacerbation. He then developed recurrent symptoms. EKG showed rate response RBBB. He was transferred to [facility] with concerns for ACS. He then developed franklin hematuria, urinary retention, and they were unable to insert catheter this morning. Planning to take him to OR this morning for urethral dilation with scope. On evaluation, the patient denies active chest pain. Currently afib rate controlled. No active bleeding on evaluation. hemodynamically stable. Family is at bedside. Review of Systems ROS Limitations: Clinical Condition Past Family Social History Allergies: Coded Allergies: Penicillin (Unverified Allergy, Severe, Hives, 11/16/16) Past Medical History See [facility] Prostate CA Past Surgical History appendectomy Colonoscopy Reported Medications Reviewed Active Ordered Medications Current Medications Medications (Trade) Dose Ordered Sig/Stephany Route Start Time Stop Time Status Last Admin (NS Flush) 2 ml BID IVF 11/16/16 09:00 11/17/16 09:00 (NS Flush) 2 ml UNSCH PRN IVF 11/16/16 08:45 11/16/16 18:33 (Lasix Inj) 40 mg BID@09,18 IVP 11/16/16 18:00 11/17/16 08:14 (KCl) 20 meq BID PO 11/16/16 21:00 11/16/16 21:59 (Ecotrin Ec) 325 mg DAILY PO 11/16/16 09:15 (Prinivil) 20 mg DAILY PO 11/17/16 09:00 (Nitrostat Sl) 0.4 mg Q5M PRN SL 11/16/16 11:30 (Zofran Inj) 4 mg Q6HR PRN IV PUSH 11/17/16 06:15 11/17/16 06:11 (Lopressor) 50 mg BID PO 11/17/16 06:30 (Vasotec Inj) 1.25 mg Q6H PRN IV PUSH 11/17/16 06:30 (Morphine Inj) 2 mg Q15M PRN IV PUSH 11/17/16 08:00 11/17/16 08:14 Acetaminophen 1000 mg 1,000 mg Q12H PRN IV 11/17/16 09:45 11/17/16 09:55 (Levaquin 500 Mg Premix Inj) 100 ml @ 100 mls/hr Q24H IV 11/17/16 12:00 Family History non contributory Social History Live with , nonsmoker Physical Exam Vital Signs Vital Signs Date Time Temp Pulse Resp B/P Pulse Ox O2 Delivery O2 Flow Rate FiO2 11/17/16 12:00 99.6 77 28 118/66 93 11/17/16 12:00 77 11/17/16 10:00 89 11/17/16 08:00 103.0 210 26 172/79 97 11/17/16 08:00 134 11/17/16 06:00 124 11/17/16 04:00 98.0 78 28 187/78 94 11/17/16 04:00 78 11/17/16 02:00 60 11/17/16 00:57 98 BiPAP 2.00 11/17/16 00:00 98.0 68 24 152/70 95 11/17/16 00:00 68 11/16/16 23:15 98.0 58 25 162/77 96 11/16/16 20:30 68 20 161/80 97 11/16/16 20:00 96.3 69 28 182/95 95 11/16/16 19:59 76 11/16/16 19:53 94 Nasal Cannula 2.00 11/16/16 16:50 98 Nasal Cannula 2.00 11/16/16 16:30 99 Nasal Cannula 4.00 11/16/16 16:00 98.2 59 19 144/82 97 Physical Exam GENERAL: Elderly, obese male, family at bedside SKIN: Warm and dry. HEAD: Atraumatic. Normocephalic. EYES: Pupils equal and round. No scleral icterus. No injection or drainage. ENT: No nasal bleeding or discharge. Mucous membranes pink and moist. NECK: Trachea midline. CARDIOVASCULAR: Irregularly irregula RESPIRATORY: On home CPAP GASTROINTESTINAL: Abdomen soft, non-tender, nondistended. MUSCULOSKELETAL: Extremities without clubbing, cyanosis, No obvious deformities. 1+ edema R>L NEUROLOGICAL: Awake and alert. No obvious cranial nerve deficits. Normal speech. PSYCHIATRIC: Appropriate mood and affect; insight and judgment normal. Laboratory Laboratory Tests Test 11/16/16 11/16/16 11/17/16 11/17/16 20:25 23:15 03:55 06:25 Total Creatine Kinase 59 Troponin I 0.51 Nasal Screen MRSA (PCR) NEGATIVE White Blood Count 9.0 Red Blood Count 4.41 Hemoglobin 13.8 Hematocrit 40.4 Mean Corpuscular Volume 91.6 Mean Corpuscular Hemoglobin 31.3 Mean Corpuscular Hemoglobin 34.2 Concent Red Cell Distribution Width 17.5 Platelet Count 128 Mean Platelet Volume 9.6 Neutrophils (%) (Auto) 77.9 Lymphocytes (%) (Auto) 11.5 Monocytes (%) (Auto) 7.6 Eosinophils (%) (Auto) 1.8 Basophils (%) (Auto) 1.2 Neutrophils # (Auto) 7.0 Lymphocytes # (Auto) 1.0 Monocytes # (Auto) 0.7 Eosinophils # (Auto) 0.2 Basophils # (Auto) 0.1 CBC Comment DIFF FINAL Differential Comment Prothrombin Time 18.1 Prothromb Time International 1.6 Ratio Sodium Level 144 Potassium Level 4.3 Chloride Level 108 Carbon Dioxide Level 27.0 Anion Gap 9 Blood Urea Nitrogen 22 Creatinine 1.28 Estimat Glomerular Filtration 53 Rate Random Glucose 108 Calcium Level 9.0 Blood Gas Puncture Site RT RADIAL Blood Gas Patient Temperature 98.6 Blood Gas HCO3 19 Blood Gas Base Excess -4.1 Blood Gas Oxygen Saturation 89 Arterial Blood pH 7.43 Arterial Blood Partial 30 Pressure CO2 Arterial Blood Partial 60 Pressure O2 Arterial Blood Oxygen Content 17.1 Arterial Blood 1.5 Carboxyhemoglobin Arterial Blood Methemoglobin 0.7 Blood Gas Hemoglobin 13.7 Oxygen Delivery Device BiPAP Blood Gas Liter Flow 7 Blood Gas Ventilator Setting CPAP OF 10 Test 11/17/16 11/17/16 08:34 12:30 Activated Partial 30.4 Thromboplast Time Urine Color YELLOW Urine Turbidity HAZY Urine pH 5.5 Urine Specific [place] 1.017 Urine Protein 100 Urine Glucose (UA) NEG Urine Ketones NEG Urine Occult Blood LARGE Urine Nitrite NEG Urine Bilirubin NEG Urine Urobilinogen LESS THAN 2.0 Urine Leukocyte Esterase SMALL Urine RBC 93 Urine WBC 20 Urine WBC Clumps RARE Urine Amorphous Sediment RARE Urine Bacteria MANY Urine Hyaline Casts 2 Urine Mucus FEW Microscopic Urinalysis Comment CATH-CULTURE IND Date/Time Procedure Status Source Growth 11/17/16 12:30 Urine Culture Received Urine Catheterized Urine Pending Result Diagram: 11/17/16 0355 11/17/16 0355 Imaging Last 72 hours Impressions Chest X-Ray 11/17/16 0000 Signed Impressions: Service Date/Time: Thursday, November 17, 2016 06:45 - CONCLUSION: Cardiomegaly with interstitial edema and bibasilar airspace disease, consistent with CHF. There is slight improvement on current study. Osito Gomez MD Chest X-Ray 11/16/16 0731 Signed Impressions: Service Date/Time: Wednesday, November 16, 2016 07:48 - CONCLUSION: Moderate congestive failure. Sg Ordaz MD FACR Assessment and Plan Assessment and Plan ASSESSMENT Chest pain- troponin elevated. Demand vs ischemic. No evidence of STEMI on EKG. He has rate responsive RBBB and atrial fibrillation Atrial fibrillation Acute on chronic diastolic CHF exacerbation Obstructive uropathy- pending OR this morning Active bleeding HTN DNR PLAN Recheck troponin today Stop heparin products Transfuse to Hbg 10 with lasix Workup pending clinical course Patient seen and evaluated by Michaelle Chamorro PA Nov 17, 2016 14:34
[2016-11-17 15:10] LABS: HEMATOCRIT 41.4 % (39.0-51.0)
[2016-11-17 15:24] LABS: REVIEW FLAG FINAL
[2016-11-17] MEDS ORDERED: WARFARIN SOD 3 MG TAB PO SCH (16:00)
--- NOTE | 2016-11-17 16:02 | EC ---
Study Study Date:11/17/2016 STUDY CONCLUSIONS SUMMARY - Left ventricle: The cavity size was normal. Wall thickness was normal. Systolic function was moderately reduced. The estimated ejection fraction was in the range of 35% to 40%. Diffuse hypokinesis. Doppler parameters are consistent with abnormal left ventricular relaxation (grade 1 diastolic dysfunction). - Aortic valve: Transvalvular velocity was increased. There was mild to moderate stenosis. Valve area: 1.13cm^2 (Vmax). - Mitral valve: Mildly calcified annulus. Mild to moderate regurgitation. - Left atrium: The atrium was moderately dilated. - Right ventricle: The cavity size was moderately dilated. Wall thickness was normal. - Right atrium: The atrium was moderately dilated. - Tricuspid valve: Moderate-severe regurgitation. - Pulmonary arteries: Systolic pressure was severely increased. PA peak pressure: 70mm Hg (S). If LV function is below 40, please consider prescribing an ACEI or ARB or document rationale for non-use. PROCEDURE DATA STUDY STATUS: Elective. Procedure: Transthoracic echocardiography. Image quality was fair. Scanning was performed from the parasternal, apical, and subcostal acoustic windows. Study completion: The patient tolerated the procedure well. Transthoracic echocardiography. M-mode, complete 2D, complete spectral Doppler, and color Doppler. Height: Height: 68in. Weight: Weight: 160.7lb. Body mass index: BMI: 24.5kg/m^2. Body surface area: BSA: 1.86m^2. Patient status: Inpatient. CARDIAC ANATOMY LEFT VENTRICLE: The cavity size was normal. Wall thickness was normal. Systolic function was moderately reduced. The estimated ejection fraction was in the range of 35% to 40%. Diffuse hypokinesis. Doppler parameters are consistent with abnormal left ventricular relaxation (grade 1 diastolic dysfunction). AORTIC VALVE: Trileaflet; moderately thickened, mildly calcified leaflets. Doppler: Transvalvular velocity was increased. There was mild to moderate stenosis. Trace to mild regurgitation. Valve area: 1.13cm^2 (Vmax). Indexed valve area: 0.61cm^2/m^2 (Vmax). Mean gradient: 25mm Hg (S). Peak gradient: 36mm Hg (S). AORTA: Aortic root: The aortic root was normal in size. MITRAL VALVE: Mildly calcified annulus. Doppler: Transvalvular velocity was within the normal range. There was no evidence for stenosis. Mild to moderate regurgitation. LEFT ATRIUM: The atrium was moderately dilated. RIGHT VENTRICLE: The cavity size was moderately dilated. Wall thickness was normal. PULMONIC VALVE: Doppler: Transvalvular velocity was within the normal range. There was no evidence for stenosis. No regurgitation. TRICUSPID VALVE: Structurally normal valve. Doppler: Transvalvular velocity was within the normal range. Moderate-severe regurgitation. PULMONARY ARTERY: The main pulmonary artery was normal-sized. Systolic pressure was severely increased. RIGHT ATRIUM: The atrium was moderately dilated. PERICARDIUM: There was no pericardial effusion. SYSTEMIC VEINS: Inferior vena cava: The vessel was normal in size. Patient weight: 160.7lb _Ejection fraction:_ 65-75% _Fractional shortening:_ 32% up to 5Kg 5-11.5Kg 11.6-22.9Kg 23-45Kg 45-57Kg Aortic Root 7-13 <17 13-22 17-27 17-27 LA diam 6-13 <23 24-38 33-47 37-40 RVID 10-17 7-15 7-15 7-18 8-17 LVIDd 12-22 <32 24-38 33-47 37-40 LVPW 2-4 3-6 5-7 6-8 7-8 IVS 2-4 3-6 5-7 6-8 7-8 BASIC MEASUREMENTS ADULT NORMAL Left ventricle LV internal dimension, ED, chordal *60.8 mm 43-52 level, PLAX LV internal dimension, ES, chordal *51.6 mm 23-38 level, PLAX Fractional shortening, chordal level, *15 % >29 PLAX LV posterior wall thickness, ED 9.95 mm IVS/LVPW ratio, ED 1.14 <1.3 Ventricular septum Septal thickness, ED 11.3 mm Aortic valve Leaflet separation *14 mm 15-26 BASIC MEASUREMENTS ADULT NORMAL Aortic valve Leaflet separation *14 mm 15-26 Aorta Root diameter, ED 21 mm 20-37 Left atrium Anterior-posterior dimension, ES *46 mm 19-40 Anterior-posterior dimension index, ES *2.47 cm/m^2 <2.2 LA/aortic root ratio 2.19 DOPPLER MEASUREMENTS ADULT NORMAL Main pulmonary artery Pressure, S *70 mm Hg =30 Aortic valve Peak velocity, S 301 cm/s Mean velocity, S 239 cm/s VTI, S 62.4 cm Mean gradient, S 25 mm Hg Peak gradient, S 36 mm Hg Valve area, Vmax 1.13 cm^2 Valve area index, Vmax 0.61 cm^2/m^2 Regurgitant velocity, ED 406 cm/s Regurgitant deceleration 1700 cm/s^2 Regurgitant pressure half-time 785 ms Regurgitant gradient, ED 66 mm Hg Mitral valve Maximal regurgitant velocity 392 cm/s Tricuspid valve Regurgitant peak velocity 362 cm/s Peak RV-RA gradient, S 52 mm Hg Maximal regurgitant velocity 362 cm/s Systemic veins Estimated CVP 10 mm Hg Right ventricle RV pressure, S *77 mm Hg <30 Pulmonic valve Peak velocity, S 136 cm/s LEGEND: Mean values are shown as u=mean value. Asterisk (*) kowalski values outside specified normal range. Prepared and signed by Reina Rodríguez [id number]
--- NOTE | 2016-11-17 18:48 | EKG ---
Date Performed: 11/16/2016 Time Performed: 07:18:36 PTAGE: 86 years EKG: Atrial fibrillation Left axis deviation IV conduction defect Inferior infarct - age undeter mined Possible anterior infarct - age undetermined Lateral ST-T changes may be due to myocardial isch emia Likely no significant change. Abnormal ECG PREVIOUS TRACING : 12/09/2015 22.15 DOCTOR: Reina Rodríguez Interpretating Date/Time 11/17/2016 18:47:06
--- NOTE | 2016-11-17 18:50 | EKG ---
Date Performed: 11/16/2016 Time Performed: 15:05:14 PTAGE: 86 years EKG: Atrial fibrillation with slow ventricular response. Left axis deviation IV conduction defec t Left ventricular hypertrophy Lateral ST-T changes are probably due to ventricular hypertrophy When compared to previous tracing, the patient now has slow Ventricular response. Abnormal ECG PREVIOUS TRACING : 11/16/2016 07.18 DOCTOR: Reina Rodríguez Interpretating Date/Time 11/17/2016 18:49:02
--- NOTE | 2016-11-17 18:52 | EKG ---
Date Performed: 11/16/2016 Time Performed: 20:21:46 PTAGE: 86 years EKG: Atrial fibrillation Intraventricular conduction delay Right axis deviation Right bundle bra nch block Lateral infarct - age undetermined Anteroseptal ST elevation, CONSIDER ACUTE INFARCT Inferi or ST-T changes suggest myocardial infarct When compared with previous tracing, there is a morphology Change. Clinical correlation is suggested. Ischemia can not be completely excluded. Abnormal ECG PREVIOUS TRACING : 11/16/2016 15.05 DOCTOR: Reina Rodríguez Interpretating Date/Time 11/17/2016 18:51:31
[2016-11-17 20:14] LABS: APTT (PATIENT) 41.4 SEC (24.3-30.1)
[2016-11-17] MEDS ORDERED: HEPARIN 25,000 UNITS-D5W 250 ML - PREMIX IV SCH (22:00)
[2016-11-17] MEDS ORDERED: HEPARIN SODIUM - IV 10,000 UNITS/10 ML VIAL IV PRN ×2 (22:00)
[2016-11-18] VITALS (13 sets, daily range): BP systolic 81–123; BP diastolic 50–71; PULSE 53–76; RESP 22–39; TEMP 98–101.8; O2SAT 97–100
[2016-11-18 02:15] LABS: BASOPHIL # 0.1 TH/MM3 (0-0.2); BASOPHIL % 0.6 % (0.0-2.0); EOSINOPHIL % 0.1 % (0.0-4.0); HEMATOCRIT 36.3 % (39.0-51.0); LYMPH % 1.8 % (9.0-44.0); LYMPHOCYTE # 0.2 TH/MM3 (1.0-4.8); MEAN CELL VOLUME 91.3 FL (80.0-100.0); MEAN CORPUSCULAR HEMOGLOBIN 30.9 PG (27.0-34.0); MEAN CORPUSCULAR HGB CONC 33.9 % (32.0-36.0); MONO % 4.5 % (0.0-8.0); PLATELET COUNT 88 TH/MM3 (150-450); RED BLOOD COUNT 3.98 MIL/MM3 (4.50-5.90); RED CELL DISTRIBUTION WIDTH 17.5 % (11.6-17.2); WHITE BLOOD COUNT 12.9 TH/MM3 (4.0-11.0)
[2016-11-18 02:16] LABS: HEMO FLAGS AUTO DIFF
[2016-11-18 02:25] LABS: INTERNATIONAL NORMALIZED RATIO 2.2 RATIO; PROTHROMBIN TIME - PATIENT 24.8 SEC (9.8-11.6)
[2016-11-18 02:45] LABS: BICARBONATE 24.4 MEQ/L (21.0-32.0); POTASSIUM 4.2 MEQ/L (3.5-5.1)
[2016-11-18 02:48] LABS: INDIRECT BILIRUBIN 0.9 MG/DL (0.0-0.8); TOTAL BILIRUBIN ADULT 1.2 MG/DL (0.2-1.0)
[2016-11-18 02:49] LABS: BANDS 24 % (0-6); METAMYELOCYTES 5 % (0-1); NEUTROPHIL # MANUAL DIFF 12.8 TH/MM3 (1.8-7.7); POLYS (SEG NEUTROPHILS) 70 % (16-70); WBC DIFF SAMPLE 100
[2016-11-18 02:51] LABS: SCAN/DIFF FINAL DIFF MANUAL
[2016-11-18 02:53] LABS: PLATELET ESTIMATE SMEAR LOW (NORMAL); PLATELET MORPHOLOGY NORMAL (NORMAL)
[2016-11-18 02:54] LABS: OVALOCYTES 1+ (NORMAL)
--- NOTE | 2016-11-18 07:27 | EKG ---
Date Performed: 11/17/2016 Time Performed: 21:25:18 PTAGE: 86 years EKG: Atrial fibrillation. LEFT ventricular conduction defect NO SIGNIFICANT CHANGE FROM PRIOR EL ECTROCARDIOGRAM. PREVIOUS TRACING : 11/17/2016 06.31 DOCTOR: Cristhian Brooks Interpretating Date/Time 11/18/2016 07:26:48
[2016-11-18] MEDS: FUROSEMIDE 40 MG/4 ML VIAL IVP SCH (08:41)
[2016-11-18] MEDS: METOPROLOL TARTRATE 50 MG TAB PO SCH ×2 (08:41→21:34)
[2016-11-18] MEDS: ASPIRIN EC 325 MG TABEC PO SCH (08:41)
[2016-11-18] MEDS: SODIUM CHLORIDE 0.9% FLUSH 5 ML FLUSH IVF SCH ×2 (08:41→21:00)
[2016-11-18] MEDS: POTASSIUM CHLORIDE 20 MEQ CONTROLLED RELEASE TAB PO SCH ×2 (08:41→21:34)
[2016-11-18] MEDS: LISINOPRIL 20 MG TAB PO SCH (08:41)
--- NOTE | 2016-11-18 08:53 | HHI.PR ---
Subjective Remarks Pt seen and examined. Feeling better; no CP or abdominal pain. Objective Vital Signs Vital Signs Date Time Temp Pulse Resp B/P Pulse Ox O2 Delivery O2 Flow Rate FiO2 11/18/16 06:00 65 11/18/16 04:00 66 11/18/16 04:00 98.8 66 28 119/65 99 11/18/16 02:00 63 11/18/16 00:00 99.8 76 32 107/53 98 11/18/16 00:00 76 11/17/16 22:00 70 11/17/16 20:00 98.1 93 38 183/81 97 11/17/16 20:00 93 11/17/16 19:12 95 BiPAP 12.00 11/17/16 18:00 84 11/17/16 16:00 80 11/17/16 16:00 98.2 80 24 130/76 95 11/17/16 14:00 76 11/17/16 12:00 99.6 77 28 118/66 93 11/17/16 12:00 77 11/17/16 10:00 89 I/O 11/17/16 11/17/16 11/17/16 11/18/16 11/18/16 11/18/16 07:00 15:00 23:00 07:00 15:00 23:00 Intake Total 240 ml 0 ml 240 ml 112 ml Output Total 200 ml 1075 ml 650 ml 250 ml Balance 40 ml -1075 ml -410 ml -138 ml Intake Oral 240 ml 0 ml 240 ml 30 ml IV Total 82 ml Output Urine Total 200 ml 1075 ml 650 ml 250 ml Bladder Scan Volume Amount 186 ml 294 ml # Bowel Movements 2 0 0 0 Result Diagram: 11/18/1620311/18/16203 Objective Remarks Abd:soft,nt,nd Esquivel draining clear urine Assessment and Plan Assessment and Plan Stable s/p cysto with urethral dilation with esquivel catheter insertion Maintain catheter x 7-10 days. Junior Trinh DO Nov 18, 2016 08:53
[2016-11-18 09:37] LABS: APTT (PATIENT) 49.8 SEC (24.3-30.1)
[2016-11-18] MEDS ORDERED: SODIUM CHLORID 0.9% 500 ML INJ 500 ML IV ONE (11:15)
--- NOTE | 2016-11-18 11:19 | HHI.PR ---
Subjective Remarks in no acute distress. no chest pain or sob. low garde fever earlier. d/w the RN. family at the bedside. Objective Vitals Vital Signs Date Time Temp Pulse Resp B/P Pulse Ox O2 Delivery O2 Flow Rate FiO2 11/18/16 10:00 63 11/18/16 08:00 71 11/18/16 08:00 100.1 71 26 123/60 98 11/18/16 06:00 65 11/18/16 04:00 66 11/18/16 04:00 98.8 66 28 119/65 99 11/18/16 02:00 63 11/18/16 00:00 99.8 76 32 107/53 98 11/18/16 00:00 76 11/17/16 22:00 70 11/17/16 20:00 98.1 93 38 183/81 97 11/17/16 20:00 93 11/17/16 19:12 95 BiPAP 12.00 11/17/16 18:00 84 11/17/16 16:00 80 11/17/16 16:00 98.2 80 24 130/76 95 11/17/16 14:00 76 11/17/16 12:00 99.6 77 28 118/66 93 11/17/16 12:00 77 I/O 11/17/16 11/17/16 11/17/16 11/18/16 11/18/16 11/18/16 07:00 15:00 23:00 07:00 15:00 23:00 Intake Total 240 ml 0 ml 240 ml 112 ml Output Total 200 ml 1075 ml 650 ml 250 ml Balance 40 ml -1075 ml -410 ml -138 ml Intake Oral 240 ml 0 ml 240 ml 30 ml IV Total 82 ml Output Urine Total 200 ml 1075 ml 650 ml 250 ml Bladder Scan Volume Amount 186 ml 294 ml # Bowel Movements 2 0 0 0 Result Diagram: 11/18/16 0204 11/18/16 0204 Imaging Last Impressions Chest X-Ray 11/17/16 0000 Signed Impressions: Service Date/Time: Thursday, November 17, 2016 06:45 - CONCLUSION: Cardiomegaly with interstitial edema and bibasilar airspace disease, consistent with CHF. There is slight improvement on current study. Osito Gomez MD Objective Remarks GENERAL: with some sob, in no apparent distress. CARDIOVASCULAR: Regular rate and regular rhythm without murmurs, gallops, or rubs. RESPIRATORY: Clear to auscultation. Breath sounds equal bilaterally. No wheezes , rales, or rhonchi. GASTROINTESTINAL: Abdomen soft, non-tender, nondistended. Normal, active bowel sounds MUSCULOSKELETAL: Extremities without clubbing, cyanosis, or edema. NEURO: Alert & Oriented x4 to person, place, time, situation. Moves all ext x4 Procedures esquivel insertion and urethral dilatation Medications and IVs Current Medications IV Flush (NS Flush) 2 ml UNSCH PRN IVF FLUSH AFTER USING IV ACCESS; Start 11/16 at 07:45; Stop 11/16/16 at 08:51; Status DC Nitroglycerin (Nitrostat Sl) 0.4 mg Q5M PRN SL CHEST PAIN; Start 11/16/16 at 07 :45; Stop 11/16/16 at 11:41; Status DC Furosemide (Lasix Inj) 40 mg ONCE ONCE IV PUSH ; Start 11/16/16 at 08:00; Stop 11/16/16 at 08:00; Status DC Potassium Chloride (KCl) 60 meq ONCE ONCE PO Last administered on 11/16/16 09 :44; Start 11/16/16 at 08:00; Stop 11/16/16 at 08:01; Status DC Furosemide (Lasix Inj) 40 mg ONCE ONCE IV PUSH Last administered on 11/16/16 09:44; Start 11/16/16 at 08:45; Stop 11/16/16 at 08:46; Status DC IV Flush (NS Flush) 2 ml BID IVF Last administered on 11/18/16 08:41; Start at 09:00 IV Flush (NS Flush) 2 ml UNSCH PRN IVF FLUSH AFTER USING IV ACCESS Last administered on 11/16/16 18:33; Start 11/16/16 at 08:45 Furosemide (Lasix Inj) 40 mg BID@,18 IVP Last administered on 11/18/16 08:41 ; Start 11/16/16 at 18:00 Potassium Chloride (KCl) 20 meq BID PO ; Start 11/16/16 at 09:00; Stop 11/16/16 at 09:08; Status DC Potassium Chloride (KCl) 20 meq BID PO Last administered on 11/18/16 08:41; Start 11/16/16 at 21:00 Aspirin (Ecotrin Ec) 325 mg DAILY PO Last administered on 11/18/16 08:41; Start 11/16/16 at 09:15 Lisinopril (Prinivil) 20 mg DAILY PO Last administered on 11/18/16 08:41; Start 11/17/16 at 09:00 Metoprolol Tartrate (Lopressor) 50 mg BID PO Last administered on 11/16/16 21: 59; Start 11/16/16 at 21:00; Stop 11/17/16 at 06:17; Status DC Warfarin Sodium (Coumadin) 4.5 mg DAILY@16 PO ; Start 11/17/16 at 16:00; Stop at 16:00; Status DC Miscellaneous Information ALL NURSING DEPARTME... UNSCH PRN XX SEE LABEL COMMENTS; Start 11/16/16 at 10:45; Stop 11/17/16 at 10:44; Status DC Patient Medication Teaching (Coumadin Booklet) 1 ONCE ONCE XX Last administered on 11/16/16 16:49; Start 11/16/16 at 16:00; Stop 11/17/16 at 07:34 ; Status DC Enoxaparin Sodium (Lovenox Inj) 100 mg ONCE ONCE SQ Last administered on 12:33; Start 11/16/16 at 11:30; Stop 11/16/16 at 11:40; Status DC Nitroglycerin (Nitrostat Sl) 0.4 mg Q5M PRN SL CHEST PAIN; Start 11/16/16 at 11 :30 Ondansetron HCl (Zofran Inj) 4 mg Q6HR PRN IV PUSH NAUSEA OR VOMITING Last administered on 11/17/16 18:05; Start 11/17/16 at 06:15 Metoprolol Tartrate 50 mg 50 mg BID PO Last administered on 11/18/16 08:41; Start 11/17/16 at 06:30 Heparin Sodium/ Dextrose (Heparin-D5W Inj) 250 ml @ 0 mls/hr TITRATE IV ; Start 11/17/16 at 06:30; Stop 11/17/16 at 07:34; Status DC Enalaprilat (Vasotec Inj) 1.25 mg Q6H PRN IV PUSH SBP> OR = 180, DBP> OR = 100 ; Start 11/17/16 at 06:30 Morphine Sulfate (Morphine Inj) 2 mg Q15M PRN IV PUSH any pain 1-10 Last administered on 11/17/16 08:14; Start 11/17/16 at 08:00 Lidocaine HCl (Xylocaine 2% Jelly) 1 applic BATH TESTER OTHER ; Start 11/17/16 at 08:45; Stop 11/18/16 at 08:44; Status DC Lidocaine HCl (Xylocaine 2% Jelly) 5 ml ONCE ONCE TOPICAL ; Start 11/17/16 at 09:15; Stop 11/17/16 at 09:16; Status DC Acetaminophen 1000 mg 1,000 mg Q12H PRN IV TEMPERATURE > 101.1 F Last administered on 11/17/16 09:55; Start 11/17/16 at 09:45 Levofloxacin/ Dextrose 100 ml @ 100 mls/hr Q24H IV Last administered on 12:00; Start 11/17/16 at 12:00 Heparin Sodium/ Dextrose (Heparin-D5W Inj) 250 ml @ 0 mls/hr TITRATE IV Last administered on 11/17/16 21:57; Start 11/17/16 at 22:00 Heparin Sodium (Porcine) (Heparin Inj) 5,000 units UNSCH PRN IV aPTT less than 25; Start 11/17/16 at 22:00 Heparin Sodium (Porcine) (Heparin Inj) 2,500 units UNSCH PRN IV aPTT 25 to 39; Start 11/17/16 at 22:00 A/P Assessment and Plan A/P -STEMI Continue aspirin, beta maki, nitroglycerin as needed, IRMA inhibitor. -on heparin drip Obtain lipid panel -cardiology following Acute on chronic diastolic congestive heart failure Chest x-ray does show signs of mild congestive failure Continue diuresis with Lasix 40 mg IV every 12 hours; will consider decreasing the dose if creatinine continues to rise. Continue IRMA inhibitor echo with EF 35-40% and mild to moderate aortic stenosis Hematuria s/p esquivel cath insertion and urethral dilatation in OR urology following. UTI continue antibiotic and follow the cultures- monitor temps CXR with improved CHF acute kidney injury gentle IV hydration- monitor renal function- BMP in am- will consider decreasing the dose of diuretics as noted above. Chronic atrial fibrillation, rate controlled Resumed beta maki - cardiology following. Hypertension -Resumed home medications DVT prevention -SCD's will keep in ICU. Milad Gates MD Nov 18, 2016 11:19
[2016-11-18] MEDS: LEVOFLOXACIN 500 MG PREMIX INJ 100 ML IV SCH (12:02)
[2016-11-18] MEDS: ACETAMINOPHEN 1000 MG/100 ML VIAL IV PRN (12:02)
[2016-11-18] MEDS ORDERED: RESP: ALBUTEROL 2.5 MG/IPRATROPIUM 0.5 MG NEB (PRN) NEB (13:45)
--- NOTE | 2016-11-18 14:13 | PD.CARD.PN ---
Subjective Subjective Remarks The patient denies chest pain today. BP trending down. HR stable. Weaning O2. No acute events overnight. Has minimal bleeding of urethral meatus. On heparin gtt. Family at bedside. patient is not in any distress. Objective Medications Current Medications Medications (Trade) Dose Ordered Sig/Stephany Route Start Time Stop Time Status Last Admin (NS Flush) 2 ml BID IVF 11/16/16 09:00 11/18/16 08:41 (NS Flush) 2 ml UNSCH PRN IVF 11/16/16 08:45 11/16/16 18:33 (Lasix Inj) 40 mg BID@09,18 IVP 11/16/16 18:00 11/18/16 08:41 (KCl) 20 meq BID PO 11/16/16 21:00 11/18/16 08:41 (Ecotrin Ec) 325 mg DAILY PO 11/16/16 09:15 11/18/16 08:41 (Prinivil) 20 mg DAILY PO 11/17/16 09:00 11/18/16 08:41 (Nitrostat Sl) 0.4 mg Q5M PRN SL 11/16/16 11:30 (Zofran Inj) 4 mg Q6HR PRN IV PUSH 11/17/16 06:15 11/17/16 18:05 (Lopressor) 50 mg BID PO 11/17/16 06:30 11/18/16 08:41 (Vasotec Inj) 1.25 mg Q6H PRN IV PUSH 11/17/16 06:30 (Morphine Inj) 2 mg Q15M PRN IV PUSH 11/17/16 08:00 11/17/16 08:14 Acetaminophen 1000 mg 1,000 mg Q12H PRN IV 11/17/16 09:45 11/18/16 12:02 (Heparin-D5W Inj) 250 ml @ 0 mls/hr TITRATE IV 11/17/16 22:00 11/17/16 21:57 (Heparin Inj) 5,000 units UNSCH PRN IV 11/17/16 22:00 Heparin Sodium (Porcine) 2500 units 2,500 units UNSCH PRN IV 11/17/16 22:00 Sodium Chloride 500 ml @ 30 mls/hr [id number] ONCE IV 11/18/16 11:15 11/19/16 03:54 11/18/16 11:15 (Levaquin 250 Mg Premix Inj) 50 ml @ 100 mls/hr Q24H IV 11/19/16 12:00 Vital Signs / I&O Vital Signs Date Time Temp Pulse Resp B/P Pulse Ox O2 Delivery O2 Flow Rate FiO2 11/18/16 12:00 101.8 55 22 120/71 97 11/18/16 12:00 55 11/18/16 10:00 63 11/18/16 08:00 71 11/18/16 08:00 100.1 71 26 123/60 98 11/18/16 06:00 65 11/18/16 04:00 66 11/18/16 04:00 98.8 66 28 119/65 99 11/18/16 02:00 63 11/18/16 00:00 99.8 76 32 107/53 98 11/18/16 00:00 76 11/17/16 22:00 70 11/17/16 20:00 98.1 93 38 183/81 97 11/17/16 20:00 93 11/17/16 19:12 95 BiPAP 12.00 11/17/16 18:00 84 11/17/16 16:00 80 11/17/16 16:00 98.2 80 24 130/76 95 11/17/16 14:00 76 I/O 11/17/16 11/17/16 11/17/16 11/18/16 11/18/16 11/18/16 07:00 15:00 23:00 07:00 15:00 23:00 Intake Total 240 ml 0 ml 240 ml 112 ml Output Total 200 ml 1075 ml 650 ml 250 ml Balance 40 ml -1075 ml -410 ml -138 ml Intake Oral 240 ml 0 ml 240 ml 30 ml IV Total 82 ml Output Urine Total 200 ml 1075 ml 650 ml 250 ml Bladder Scan Volume Amount 186 ml 294 ml # Bowel Movements 2 0 0 0 Physical Exam GENERAL: Elderly, obese male in ICU, family at bedside SKIN: Warm and dry. HEAD: Normocephalic. EYES: No scleral icterus. No injection or drainage. NECK: Supple, trachea midline. CARDIOVASCULAR: Regular rate and rhythm without murmurs, gallops, or rubs. RESPIRATORY: Breath sounds equal bilaterally. No accessory muscle use. Nasal cannula GASTROINTESTINAL: Abdomen soft, non-tender, nondistended. MUSCULOSKELETAL: No cyanosis, Bilateral edema R>L BACK: Nontender without obvious deformity. Laboratory Laboratory Tests Test 11/17/16 11/17/16 11/18/16 11/18/16 14:54 19:50 02:04 09:07 Hemoglobin 13.8 GM/DL 12.3 GM/DL Hematocrit 41.4 % 36.3 % Blood Type B POSITIVE Antibody Screen NEGATIVE Activated Partial 41.4 SEC 64.0 SEC 49.8 SEC Thromboplast Time Troponin I 11.00 NG/ML White Blood Count 12.9 TH/MM3 Red Blood Count 3.98 MIL/MM3 Mean Corpuscular Volume 91.3 FL Mean Corpuscular Hemoglobin 30.9 PG Mean Corpuscular Hemoglobin 33.9 % Concent Red Cell Distribution Width 17.5 % Platelet Count 88 TH/MM3 Mean Platelet Volume 9.1 FL Neutrophils (%) (Auto) 93.0 % Lymphocytes (%) (Auto) 1.8 % Monocytes (%) (Auto) 4.5 % Eosinophils (%) (Auto) 0.1 % Basophils (%) (Auto) 0.6 % Neutrophils # (Auto) 12.0 TH/MM3 Lymphocytes # (Auto) 0.2 TH/MM3 Monocytes # (Auto) 0.6 TH/MM3 Eosinophils # (Auto) 0.0 TH/MM3 Basophils # (Auto) 0.1 TH/MM3 CBC Comment AUTO DIFF Differential Total Cells 100 Counted Neutrophils % (Manual) 70 % Band Neutrophils % 24 % Monocytes % 1 % Neutrophils # (Manual) 12.8 TH/MM3 Metamyelocytes 5 % Differential Comment FINAL DIFF MANUAL Platelet Estimate LOW Platelet Morphology Comment NORMAL Ovalocytes 1+ Prothrombin Time 24.8 SEC Prothromb Time International 2.2 RATIO Ratio Sodium Level 141 MEQ/L Potassium Level 4.2 MEQ/L Chloride Level 107 MEQ/L Carbon Dioxide Level 24.4 MEQ/L Anion Gap 10 MEQ/L Blood Urea Nitrogen 27 MG/DL Creatinine 1.50 MG/DL Estimat Glomerular Filtration 44 ML/MIN Rate Random Glucose 133 MG/DL Calcium Level 8.4 MG/DL Total Bilirubin 1.2 MG/DL Direct Bilirubin 0.3 MG/DL Indirect Bilirubin 0.9 MG/DL Aspartate Amino Transf 83 U/L (AST/SGOT) Alanine Aminotransferase 27 U/L (ALT/SGPT) Alkaline Phosphatase 31 U/L Total Protein 6.0 GM/DL Albumin 3.0 GM/DL Imaging Last 72 hours Impressions Chest X-Ray 11/17/16 0000 Signed Impressions: Service Date/Time: Thursday, November 17, 2016 06:45 - CONCLUSION: Cardiomegaly with interstitial edema and bibasilar airspace disease, consistent with CHF. There is slight improvement on current study. Osito Gomez MD Chest X-Ray 11/16/16 0731 Signed Impressions: Service Date/Time: Wednesday, November 16, 2016 07:48 - CONCLUSION: Moderate congestive failure. Sg Ordaz MD FACR Assessment and Plan Assessment and Plan ASSESSMENT Chest pain- NSTEMI Atrial fibrillation- on coumadin Acute on chronic systolic CHF exacerbation CMP EF 35-40% Active bleeding HTN DNR Obstructive uropathy s/p urethral stricture dilation yesterday. Leukocytosis Thrombocytopenia PLAN Had discussion with the patient and family bedside. Elected to hold off on cardiac cath at this time. If the patient develops symptoms of recurrent ischemia, we will reconsider. Stop heparin, continue ASA. Will resume coumadin prior to discharge Continue BB and IRMA for CMP and ACS. Will add Aldactone prior to discharge Decrease Lasix IV to daily Continue statin therapy Check lipids Patient seen and evaluated by Michaelle Chamorro Nov 18, 2016 14:13
[2016-11-18] MEDS ORDERED: DOPamine INJ PREMIX 500 ML ONE (15:53)
[2016-11-18] MEDS: RESP: ALBUTEROL 2.5 MG/IPRATROPIUM 0.5 MG NEB (SCH) NEB ×2 (16:00→21:44)
[2016-11-18] MEDS ORDERED: DOPamine 800 MG/D5W PREMIX 500 ML IV SCH (16:45)
[2016-11-18 17:11] LABS: HDL CHOLESTEROL 42.5 MG/DL (40.0-60.0)
[2016-11-18] MEDS ORDERED: SODIUM CHLOR 0.9% 1000 ML INJ 1,000 ML IV ONE (18:00)
--- NOTE | 2016-11-18 18:52 | PD.CONS ---
Consult Service Palliative Care Consult Requested By Dr. Li Primary Care Physician Ishan Cruz MD Reason for Consultation a. To assist with evaluation and management of symptoms including: b. To assist medical decision maker(s) with: better understanding of current medical conditions; weighing benefits/burdens of medical treatment options; making medical treatment decisions. HPI History of Present Illness Patient is a 86-year-old gentleman who presented to [facility] in [place] with a complaint of chest pain on 11/16/2016.Patient does have rather complex cardiac history in which he usually does not leave the house on a daily basis. Usually sits in his chair throughout the day, sleeps in bed. They do have a healthcare attendant that is their on a daily basis. Patient has chronically swollen lower extremities, and chest pain in the morning of admission when he was watching the news. He described the chest pain at the time of a pressure-like sensation with associated nausea, shortness of breath. In the ER: * Temperature is 98.0, pulse is 79, respirations 20, blood pressure is 170/79, pulse is 96 on 4 L nasal cannula * Sodium is 144, potassium 3.2, close 09, bicarbonate 26.2, BUN is 24, creatinine 1.20 * Initial troponin I 0.07, BNP is 479 * WBC is 5.9, H&H is 13.3 and 39.6, platelet is 109 * PT 17.2, INR is 1.5, PTT is 30.3 * PH is 7.43, PCO2 30, PO2 60% * EKG shows A. fib. Salesperson Women[employer]ats recommended as lateral ST to T changes may be due to myocardial ischemia * Chest x-ray shows moderate, congestive failure * Chest x-ray shows cardiomegaly with interstitial edema and bibasilar airspace disease consistent with CHF * Patient development technical lead was consulted, Dr. Mariluz Batres recommended to transfer troponin transferred to [facility]. Patient was transferred to [facility]. Second sets of troponin I is 0.59. Salesperson [employer] was contacted again and stated that there is no intervention but indicated that patient should be transferred to the hospital anyway. Patient had bloody output from his Nuñez and was dry heaving. Patient was started on heparin GTT urology was consulted, as well as cardiology. 11/17/2016 urology evaluated patient. She has a signed DNR and DNR was confirmed. Patient was taken to the OR for urethral dilation the scope. Hemoglobin was stable. Chest x-ray shows cardiomegaly with interstitial edema and bibasilar airspace disease. Echocardiogram shows an EF of 35-40%. There is diffuse hypokinesis. Mitral valve is mildly calcified with mild to moderate regurgitation. Left atrium was moderately dilated. Right ventricle was moderately dilated wall thickness was normal. Right atrium was moderately dilated. Tricuspid valve has moderate to severe regurgitation. Pulmonary artery shows systolic pressure was severely increased. 11/18/2016-patient today leukocytosis is more elevated. Patient's creatinine is also 1.50. Patient today developed altered mental status, with drop in blood pressure. Initially industrial gas production operator was consulted. Patient was placed on dopamine drip and mentation cleared up a little bit. Patient was also given bolus of IV fluids. Initially industrial gas production operator was consulted however, pt really did not want to do anything intensive. Per pt really did not want to undergo any catherization and just want to go home. DNR maintained. I was ask by attending to see pt quickly today, should pt have another event. Pt on my visit was alert and clear. Able to say he came in due to my heart. He understands he is critical and put on these dopamine drips and fluids to give him more time. He does not have pain, but is coughing and have some dyspnea. Family/ daughter and health Care surrogate. Jonna Lopezkatelyn Brunner was at bedside. Pt understands that if he does not have fluids, drips, blood pressure will drop and that he will pass away. He states he wants to go home, be with family and past over there. He is amenable to Hospice, but not a care center. Family is tearful but supportive of decision. I did discuss with him that if he does not have the drip on the way to his house, his blood pressure will drop, and more than likely will pass away. Pt would like to go home and past away there if possible with the dopamine drip, and once medication runs out , won't be restarted. Pt and HCS understand if on the line that iv line is lost, hospice will not restart it. Reviewed the meds for discomfort, including morphine, ativan, and others. Family request that pt at least continue to have betablocker and diuretics as long as he can swallow. Amenable to hospice consult, but logistics can be an issue, and may not be able to accomplish all by tonight. Pt and daughter are amenable to stay in the hospital until logistics works out. Pt and daughter are amenable for comfort meds. Function/Cognitive Trajectory short of breath, complex cardiac issues. requires content administrator. Review of Systems ROS Limitations: Clinical Condition Constitutional: COMPLAINS OF: Fatigue Cardiovascular: COMPLAINS OF: Chest pain, Dyspnea on Exertion, Lower Extremity Edema, Orthopnea Past Family Social History Coded Allergies: Penicillin (Unverified Allergy, Severe, Hives, 11/16/16) Past Medical History Hypertension Hyperlipidemia chronic afibrillation Gastroesophageal reflux History of prostate cancer History of CVA Past Surgical History Selective left femoral angiography Appendectomy Left inguinal hernia repair Prostate seed implant TURP Reported Medications Magnesium 400 Mg Tab 400 Mg PO DAILY Aspirin EC (Aspirin) 325 Mg Tabdr 325 Mg PO DAILY Zinc 50 Mg Tab 50 Mg PO DAILY Furosemide 40 Mg Tab 40 Mg PO DAILY Potassium Chloride ER (Potassium Chloride) 20 Meq Tab 20 Meq PO BID Benazepril (Benazepril HCl) 20 Mg Tab 20 Mg PO DAILY Warfarin 4 Mg Tab 4.5 Mg PO DAILY Metoprolol Tartrate 50 Mg Tab 50 Mg PO BID Current Medications Medications (Trade) Dose Ordered Sig/Stephany Route Start Time Stop Time Status Last Admin (NS Flush) 2 ml BID IVF 11/16/16 09:00 11/18/16 08:41 (NS Flush) 2 ml UNSCH PRN IVF 11/16/16 08:45 11/16/16 18:33 (KCl) 20 meq BID PO 11/16/16 21:00 11/18/16 08:41 (Ecotrin Ec) 325 mg DAILY PO 11/16/16 09:15 11/18/16 08:41 (Prinivil) 20 mg DAILY PO 11/17/16 09:00 11/18/16 08:41 (Nitrostat Sl) 0.4 mg Q5M PRN SL 11/16/16 11:30 (Zofran Inj) 4 mg Q6HR PRN IV PUSH 11/17/16 06:15 11/17/16 18:05 (Lopressor) 50 mg BID PO 11/17/16 06:30 11/18/16 08:41 (Vasotec Inj) 1.25 mg Q6H PRN IV PUSH 11/17/16 06:30 (Morphine Inj) 2 mg Q15M PRN IV PUSH 11/17/16 08:00 11/17/16 08:14 Acetaminophen 1000 mg 1,000 mg Q12H PRN IV 11/17/16 09:45 11/18/16 12:02 Sodium Chloride 500 ml @ 30 mls/hr [id number] ONCE IV 11/18/16 11:15 11/19/16 03:54 11/18/16 11:15 (Levaquin 250 Mg Premix Inj) 50 ml @ 100 mls/hr Q24H IV 11/19/16 12:00 Furosemide 40 mg 40 mg DAILY IVP 11/19/16 09:00 (DOPamine INJ PREMIX) 500 ml @ 0 mls/hr TITRATE IV 11/18/16 16:45 11/18/16 16:15 Family History Reviewed and grossly unremarkable. Patient states that he is oldest of all the brothers who are all in good health Substance Use Tobacco:No Alcohol:No Prescription med abuse: Illicits:No Psychosocial History Lives at home, there is content administrator. Supported by Daughter Jonna Brunner (daughter who is an RN), Stephane Brunner (son in law). Granddaughters. Spiritual/Cultural Factors Mormonism Physical Exam Vital Signs Date Time Temp Pulse Resp B/P Pulse Ox O2 Delivery O2 Flow Rate FiO2 11/18/16 14:00 55 11/18/16 12:00 101.8 55 22 120/71 97 11/18/16 12:00 55 11/18/16 10:00 63 11/18/16 08:00 71 11/18/16 08:00 100.1 71 26 123/60 98 11/18/16 06:00 65 11/18/16 04:00 66 11/18/16 04:00 98.8 66 28 119/65 99 11/18/16 02:00 63 11/18/16 00:00 99.8 76 32 107/53 98 11/18/16 00:00 76 11/17/16 22:00 70 11/17/16 20:00 98.1 93 38 183/81 97 11/17/16 20:00 93 11/17/16 19:12 95 BiPAP 12.00 11/17/16 18:00 84 11/17/16 11/18/16 19:00 07:00 Intake Total 0 ml 352 ml Output Total 1075 ml 900 ml Balance -1075 ml -548 ml Intake Oral 0 ml 270 ml IV Total 82 ml Output Urine Total 1075 ml 900 ml # Bowel Movements 0 0 Exam DRAFT CONSTITUTIONAL/GENERAL: elderly gentleman, on cpap machine, currently mentation is clear and not confuse, some noted dyspnea, and fatigued. SKIN: No jaundice, rashes, or lesions. Ecchymoses on upper extremities. No wounds seen anteriorly. Skin temperature appropriate. Not diaphoretic. HEAD: Atraumatic. Normocephalic. EYES: Pupils equal and round and reactive. Extraocular motions intact. No scleral icterus. No injection or drainage. Fundi not examined. ENT: Hearing grossly normal. Nose without bleeding or purulent drainage. Throat without visible erythema, exudates, masses, or lesions. NECK: Trachea midline. Supple, nontender. No palpable thyroid enlargement or nodularity. CARDIOVASCULAR: Irregularly irregular. No JVD. Peripheral pulses symmetric. RESPIRATORY/CHEST: Decrease breath sounds bilaterally. GASTROINTESTINAL: Abdomen soft, non-tender, nondistended. No hepato-splenomegaly , or palpable masses. No guarding. Bowel sounds present. GENITOURINARY: Without palpable bladder distension. Nuñez catheter in place. MUSCULOSKELETAL: Pt lower ext is edemetous. LYMPHATICS: No palpable cervical or supraclavicular adenopathy. NEUROLOGICAL: Awake and alert. Motor and sensory grossly within normal limits. Follows commands. Cognitively sharp. PSYCHIATRIC: No obvious anxiety/depression. no apparent hallucinations or other psychotic thought process. Diagnostic Tests Laboratory Laboratory Tests Test 11/16/16 11/16/16 11/16/16 11/16/16 07:25 14:15 20:25 23:15 White Blood Count 5.9 TH/MM3 (4.0-11.0) Red Blood Count 4.31 MIL/MM3 (4.50-5.90) Hemoglobin 13.3 GM/DL (13.0-17.0) Hematocrit 39.6 % (39.0-51.0) Mean Corpuscular Volume 92.0 FL (80.0-100.0) Mean Corpuscular Hemoglobin 30.8 PG (27.0-34.0) Mean Corpuscular Hemoglobin 33.5 % Concent (32.0-36.0) Red Cell Distribution Width 17.2 % (11.6-17.2) Platelet Count 109 TH/MM3 (150-450) Mean Platelet Volume 8.9 FL (7.0-11.0) Neutrophils (%) (Auto) 66.0 % (16.0-70.0) Lymphocytes (%) (Auto) 21.1 % (9.0-44.0) Monocytes (%) (Auto) 7.4 % (0.0-8.0) Eosinophils (%) (Auto) 1.8 % (0.0-4.0) Basophils (%) (Auto) 3.7 % (0.0-2.0) Neutrophils # (Auto) 3.9 TH/MM3 (1.8-7.7) Lymphocytes # (Auto) 1.3 TH/MM3 (1.0-4.8) Monocytes # (Auto) 0.4 TH/MM3 (0-0.9) Eosinophils # (Auto) 0.1 TH/MM3 (0-0.4) Basophils # (Auto) 0.2 TH/MM3 (0-0.2) CBC Comment DIFF FINAL Differential Comment Prothrombin Time 17.2 SEC (9.8-11.6) Prothromb Time International 1.5 RATIO Ratio Activated Partial 38.3 SEC Thromboplast Time (24.3-30.1) Sodium Level 144 MEQ/L (136-145) Potassium Level 3.2 MEQ/L (3.5-5.1) Chloride Level 109 MEQ/L (98-107) Carbon Dioxide Level 26.2 MEQ/L (21.0-32.0) Anion Gap 9 MEQ/L (5-15) Blood Urea Nitrogen 24 MG/DL (7-18) Creatinine 1.20 MG/DL (0.60-1.30) Estimat Glomerular Filtration 57 ML/MIN (>89) Rate Random Glucose 139 MG/DL (74-106) Calcium Level 8.9 MG/DL (8.5-10.1) Magnesium Level 2.4 MG/DL (1.5-2.5) Total Creatine Kinase 39 U/L (39-308) 51 U/L (39-308) 59 U/L (39-308) Troponin I 0.07 NG/ML 0.59 NG/ML 0.51 NG/ML (0.02-0.05) (0.02-0.05) (0.02-0.05) B-Type Natriuretic Peptide 479 PG/ML (0-100) Nasal Screen MRSA (PCR) NEGATIVE (NEGATIVE) Test 11/17/16 11/17/16 11/17/16 11/17/16 03:55 06:25 08:34 12:30 White Blood Count 9.0 TH/MM3 (4.0-11.0) Red Blood Count 4.41 MIL/MM3 (4.50-5.90) Hemoglobin 13.8 GM/DL (13.0-17.0) Hematocrit 40.4 % (39.0-51.0) Mean Corpuscular Volume 91.6 FL (80.0-100.0) Mean Corpuscular Hemoglobin 31.3 PG (27.0-34.0) Mean Corpuscular Hemoglobin 34.2 % Concent (32.0-36.0) Red Cell Distribution Width 17.5 % (11.6-17.2) Platelet Count 128 TH/MM3 (150-450) Mean Platelet Volume 9.6 FL (7.0-11.0) Neutrophils (%) (Auto) 77.9 % (16.0-70.0) Lymphocytes (%) (Auto) 11.5 % (9.0-44.0) Monocytes (%) (Auto) 7.6 % (0.0-8.0) Eosinophils (%) (Auto) 1.8 % (0.0-4.0) Basophils (%) (Auto) 1.2 % (0.0-2.0) Neutrophils # (Auto) 7.0 TH/MM3 (1.8-7.7) Lymphocytes # (Auto) 1.0 TH/MM3 (1.0-4.8) Monocytes # (Auto) 0.7 TH/MM3 (0-0.9) Eosinophils # (Auto) 0.2 TH/MM3 (0-0.4) Basophils # (Auto) 0.1 TH/MM3 (0-0.2) CBC Comment DIFF FINAL Differential Comment Prothrombin Time 18.1 SEC (9.8-11.6) Prothromb Time International 1.6 RATIO Ratio Sodium Level 144 MEQ/L (136-145) Potassium Level 4.3 MEQ/L (3.5-5.1) Chloride Level 108 MEQ/L (98-107) Carbon Dioxide Level 27.0 MEQ/L (21.0-32.0) Anion Gap 9 MEQ/L (5-15) Blood Urea Nitrogen 22 MG/DL (7-18) Creatinine 1.28 MG/DL (0.60-1.30) Estimat Glomerular Filtration 53 ML/MIN (>89) Rate Random Glucose 108 MG/DL (74-106) Calcium Level 9.0 MG/DL (8.5-10.1) Blood Gas Puncture Site RT RADIAL Blood Gas Patient Temperature 98.6 Blood Gas HCO3 19 mmol/L (22-26) Blood Gas Base Excess -4.1 mmol/L (-2-2) Blood Gas Oxygen Saturation 89 % (90-100) Arterial Blood pH 7.43 (7.380-7.420) Arterial Blood Partial 30 mmHg (38-42) Pressure CO2 Arterial Blood Partial 60 mmHg Pressure O2 (61-120) Arterial Blood Oxygen Content 17.1 Vol % (12.0-20.0) Arterial Blood 1.5 % (0-4) Carboxyhemoglobin Arterial Blood Methemoglobin 0.7 % (0-2) Blood Gas Hemoglobin 13.7 G/DL (12.0-16.0) Oxygen Delivery Device BiPAP Blood Gas Liter Flow 7 L/M Blood Gas Ventilator Setting CPAP OF 10 Activated Partial 30.4 SEC Thromboplast Time (24.3-30.1) Urine Color YELLOW (YELLW/STRAW) Urine Turbidity HAZY (CLEAR) Urine pH 5.5 (5.0-8.5) Urine Specific [place] 1.017 (1.002-1.035) Urine Protein 100 mg/dL (NEG-TRACE) Urine Glucose (UA) NEG mg/dL (NEG) Urine Ketones NEG mg/dL (NEG) Urine Occult Blood LARGE (NEG) Urine Nitrite NEG (NEG) Urine Bilirubin NEG (NEG) Urine Urobilinogen LESS THAN 2.0 MG/DL (LESS THAN 2.0) Urine Leukocyte Esterase SMALL (NEG) Urine RBC 93 /hpf (0-3) Urine WBC 20 /hpf (0-5) Urine WBC Clumps RARE (NONE) Urine Amorphous Sediment RARE Urine Bacteria MANY /hpf (NONE) Urine Hyaline Casts 2 /lpf (RARE) Urine Mucus FEW /lpf (OCC) Microscopic Urinalysis Comment CATH-CULTURE IND Test 11/17/16 11/17/16 11/18/16 11/18/16 14:54 19:50 02:04 09:07 Hemoglobin 13.8 GM/DL 12.3 GM/DL (13.0-17.0) (13.0-17.0) Hematocrit 41.4 % 36.3 % (39.0-51.0) (39.0-51.0) Blood Type B POSITIVE Antibody Screen NEGATIVE Activated Partial 41.4 SEC 64.0 SEC 49.8 SEC Thromboplast Time (24.3-30.1) (24.3-30.1) (24.3-30.1) Troponin I 11.00 NG/ML (0.02-0.05) White Blood Count 12.9 TH/MM3 (4.0-11.0) Red Blood Count 3.98 MIL/MM3 (4.50-5.90) Mean Corpuscular Volume 91.3 FL (80.0-100.0) Mean Corpuscular Hemoglobin 30.9 PG (27.0-34.0) Mean Corpuscular Hemoglobin 33.9 % Concent (32.0-36.0) Red Cell Distribution Width 17.5 % (11.6-17.2) Platelet Count 88 TH/MM3 (150-450) Mean Platelet Volume 9.1 FL (7.0-11.0) Neutrophils (%) (Auto) 93.0 % (16.0-70.0) Lymphocytes (%) (Auto) 1.8 % (9.0-44.0) Monocytes (%) (Auto) 4.5 % (0.0-8.0) Eosinophils (%) (Auto) 0.1 % (0.0-4.0) Basophils (%) (Auto) 0.6 % (0.0-2.0) Neutrophils # (Auto) 12.0 TH/MM3 (1.8-7.7) Lymphocytes # (Auto) 0.2 TH/MM3 (1.0-4.8) Monocytes # (Auto) 0.6 TH/MM3 (0-0.9) Eosinophils # (Auto) 0.0 TH/MM3 (0-0.4) Basophils # (Auto) 0.1 TH/MM3 (0-0.2) CBC Comment AUTO DIFF Differential Total Cells 100 Counted Neutrophils % (Manual) 70 % (16-70) Band Neutrophils % 24 % (0-6) Monocytes % 1 % (0-8) Neutrophils # (Manual) 12.8 TH/MM3 (1.8-7.7) Metamyelocytes 5 % (0-1) Differential Comment FINAL DIFF MANUAL Platelet Estimate LOW (NORMAL) Platelet Morphology Comment NORMAL (NORMAL) Ovalocytes 1+ (NORMAL) Prothrombin Time 24.8 SEC (9.8-11.6) Prothromb Time International 2.2 RATIO Ratio Sodium Level 141 MEQ/L (136-145) Potassium Level 4.2 MEQ/L (3.5-5.1) Chloride Level 107 MEQ/L (98-107) Carbon Dioxide Level 24.4 MEQ/L (21.0-32.0) Anion Gap 10 MEQ/L (5-15) Blood Urea Nitrogen 27 MG/DL (7-18) Creatinine 1.50 MG/DL (0.60-1.30) Estimat Glomerular Filtration 44 ML/MIN (>89) Rate Random Glucose 133 MG/DL (74-106) Calcium Level 8.4 MG/DL (8.5-10.1) Total Bilirubin 1.2 MG/DL (0.2-1.0) Direct Bilirubin 0.3 MG/DL (0.0-0.2) Indirect Bilirubin 0.9 MG/DL (0.0-0.8) Aspartate Amino Transf 83 U/L (15-37) (AST/SGOT) Alanine Aminotransferase 27 U/L (12-78) (ALT/SGPT) Alkaline Phosphatase 31 U/L (45-117) Total Protein 6.0 GM/DL (6.4-8.2) Albumin 3.0 GM/DL (3.4-5.0) Triglycerides Level 77 MG/DL (42-150) Cholesterol Level 135 MG/DL (120-200) LDL Cholesterol 77 MG/DL (0-99) HDL Cholesterol 42.5 MG/DL (40.0-60.0) Cholesterol/HDL Ratio 3.17 RATIO Result Diagram: 11/18/1620311/18/16203 Microbiology Microbiology Date/Time Procedure Status Source Growth 11/17/16 12:30 Urine Culture - Preliminary Resulted Urine Catheterized Urine NO GROWTH IN 24 HOURS. 11/17/16 14:41 Aerobic Blood Culture - Preliminary Resulted Blood Peripheral NO GROWTH IN 1 DAY 11/17/16 14:41 Anaerobic Blood Culture - Final Resulted Blood Peripheral QNS - SEE AEROBE REPORT 11/17/16 19:50 Aerobic Blood Culture - Preliminary Resulted Blood Peripheral NO GROWTH IN 1 DAY 11/17/16 19:50 Anaerobic Blood Culture - Preliminary Resulted Blood Peripheral NO GROWTH IN 1 DAY Imaging Last Impressions Chest X-Ray 11/17/16 0000 Signed Impressions: Service Date/Time: Thursday, November 17, 2016 06:45 - CONCLUSION: Cardiomegaly with interstitial edema and bibasilar airspace disease, consistent with CHF. There is slight improvement on current study. Osito Gomez MD Patient/Family Conference Present at Family Conference: Pt's daughter/ HCS, son in law, significant other/girlfriend/content administrator, and granddaughters. Family Conference Time (mins): 42 Family Conference Location: Bedside Issues Discussed: * Palliative care role, purpose, approach * Additional medical, psychosocial, and spiritual history * Patients general health, functional status, and cognitive changes in the months leading up to the current hospitalization * Patient/family understanding of the current medical problems * Patient/family understanding of prognosis * Patients goals of care as best understood from advance directives and/or conversations and/or values * Current medical treatment options and benefits/burdens of those options * Likely scenarios comparing ongoing aggressive care with a transition to comfort measures only * Questions answered to the best of my ability * Palliative care contact information provided Assessment and Plan Disease Oriented Problem List: (1) Atrial fibrillation (2) Chest pain (3) CO (myocardial infarction) Symptom Scale: (1) Chest pain 0-10 Scale: 2 (2) Dyspnea 0-10 Scale: Unable to quantify (3) Anxiety 0-10 Scale: 0 Pertinent Non-Medical Issues Psychosocial: Spiritual: Legal: Ethical issues impacting care: Important Contacts Jonna Lopez [phone] (daughter and health care surrogate) cell [phone] Velasquez Brunner (alternate HCS) Prognosis 86 year old with extensive cardiac disease. Has CO, now with hypotension ( dopamine drip), given his goals of care, age, renal function, extensive cardiac disease, meets hospice criteria. Code Status: No Code Plan == Code:= DNR- community DNR signed == HCS: Jonna Brunner. Pt designated daughter, and Stephane Brunner, as HCS and alternate respectively . Form in the chart, copies made and will be scanned to HIM == capacity: pt has capacity to make medical decisions, is clear, able to say why he came to the hospital. Demonstrate able to weigh the risks and benefits. Understands if dopamine drip stopped most likely pt will be hypotensive and pass away. He understands that and has capacity to make medical decisions on my exam. Family members, including HCS were at [facility]. == Goals: He wish to go home and peacefully with home hospice. Goals is to go with dopamin drip, at current way so that he can survive transport. When drip runs out, pt and HCS understand no new medicine will be started. Hospice will not titrate drip. Should during transport IV access is lost, hospice will not place a new line for drip and he may pass away then. Amenable to morphine, ativan, and other comfort meds. Would like supportive care. DNR Pt was discussed with senior software quality engineer. == anticipate pt will have Chest pain, dyspnea, anxiety. comfort meds will be ordered. == Palliative Care will continue to follow. Thank you for the opportunity to participate in the care of Mr. Lopez. Parker Melgar MD Nov 18, 2016 18:52
[2016-11-18] MEDS ORDERED: LORazepam 2 MG/ML VIAL IV PRN ×2 (19:30)
[2016-11-19] VITALS (7 sets, daily range): BP systolic 113–125; BP diastolic 56–66; PULSE 54–76; RESP 14–27; TEMP 97.7–98.9; O2SAT 93–100
[2016-11-19] MEDS: RESP: ALBUTEROL 2.5 MG/IPRATROPIUM 0.5 MG NEB (SCH) NEB ×2 (04:00→08:24)
[2016-11-19] MEDS: ASPIRIN EC 325 MG TABEC PO SCH (08:41)
[2016-11-19] MEDS: POTASSIUM CHLORIDE 20 MEQ CONTROLLED RELEASE TAB PO SCH (08:41)
[2016-11-19] MEDS: SODIUM CHLORIDE 0.9% FLUSH 5 ML FLUSH IVF SCH (08:42)
[2016-11-19] MEDS: LISINOPRIL 20 MG TAB PO SCH (09:00)
[2016-11-19] MEDS ORDERED: FUROSEMIDE 40 MG/4 ML VIAL IVP SCH (09:00)
--- NOTE | 2016-11-19 09:47 | HHI.PR ---
Subjective Remarks Pt seen and examined. No chest pain. Esquivel with clear urine. Objective Vital Signs Vital Signs Date Time Temp Pulse Resp B/P Pulse Ox O2 Delivery O2 Flow Rate FiO2 11/19/16 08:00 68 11/19/16 08:00 97.9 68 16 125/62 96 11/19/16 07:51 98 Nasal Cannula 5.00 11/19/16 06:00 57 11/19/16 04:00 98.9 56 14 117/56 99 11/19/16 04:00 56 11/19/16 02:00 61 11/19/16 00:00 54 11/19/16 00:00 98.8 63 17 113/56 100 11/18/16 22:00 65 11/18/16 20:00 72 11/18/16 20:00 98.0 72 39 119/59 98 11/18/16 19:45 98 Nasal Cannula 2.00 11/18/16 18:00 76 11/18/16 16:00 53 11/18/16 16:00 98.0 53 26 81/50 100 11/18/16 14:00 55 11/18/16 12:00 101.8 55 22 120/71 97 11/18/16 12:00 55 11/18/16 10:00 63 I/O 11/18/16 11/18/16 11/18/16 11/19/16 11/19/16 11/19/16 07:00 15:00 23:00 07:00 15:00 23:00 Intake Total 112 ml 1228 ml 1715 ml 120 ml Output Total 250 ml 350 ml 350 ml 225 ml Balance -138 ml 878 ml 1365 ml -105 ml Intake Oral 30 ml 960 ml 300 ml 120 ml IV Total 82 ml 268 ml 1415 ml Output Urine Total 250 ml 350 ml 350 ml 225 ml # Bowel Movements 0 1 0 0 Result Diagram: 11/18/1620311/18/16203 Objective Remarks Abd:soft,nt,nd Esquivel draining clear urine 11/19 Abd:soft,nt,nd Esquivel draining clear urine Assessment and Plan Assessment and Plan Stable s/p cysto with urethral dilation with esquivel catheter insertion Maintain catheter x 7-10 days. 11/19 Stable s/p cysto with urethral dilation with esquivel catheter insertion Void trial next week either at home by hospice or pt can come to the office Junior Trinh DO Nov 19, 2016 09:47
[2016-11-19] MEDS: METOPROLOL TARTRATE 50 MG TAB PO SCH (10:14)
--- NOTE | 2016-11-19 10:34 | HHI.PR ---
Subjective Remarks looks somewhat better today. denies chest pain. no new complaints and wants to go home. Objective Vitals Vital Signs Date Time Temp Pulse Resp B/P Pulse Ox O2 Delivery O2 Flow Rate FiO2 11/19/16 08:00 68 11/19/16 08:00 97.9 68 16 125/62 96 11/19/16 07:51 98 Nasal Cannula 5.00 11/19/16 06:00 57 11/19/16 04:00 98.9 56 14 117/56 99 11/19/16 04:00 56 11/19/16 02:00 61 11/19/16 00:00 54 11/19/16 00:00 98.8 63 17 113/56 100 11/18/16 22:00 65 11/18/16 20:00 72 11/18/16 20:00 98.0 72 39 119/59 98 11/18/16 19:45 98 Nasal Cannula 2.00 11/18/16 18:00 76 11/18/16 16:00 53 11/18/16 16:00 98.0 53 26 81/50 100 11/18/16 14:00 55 11/18/16 12:00 101.8 55 22 120/71 97 11/18/16 12:00 55 I/O 11/18/16 11/18/16 11/18/16 11/19/16 11/19/16 11/19/16 07:00 15:00 23:00 07:00 15:00 23:00 Intake Total 112 ml 1228 ml 1715 ml 120 ml Output Total 250 ml 350 ml 350 ml 225 ml Balance -138 ml 878 ml 1365 ml -105 ml Intake Oral 30 ml 960 ml 300 ml 120 ml IV Total 82 ml 268 ml 1415 ml Output Urine Total 250 ml 350 ml 350 ml 225 ml # Bowel Movements 0 1 0 0 Result Diagram: 11/18/16 0204 11/18/16 0204 Imaging Last Impressions Chest X-Ray 11/17/16 0000 Signed Impressions: Service Date/Time: Thursday, November 17, 2016 06:45 - CONCLUSION: Cardiomegaly with interstitial edema and bibasilar airspace disease, consistent with CHF. There is slight improvement on current study. Osito Gomez MD Objective Remarks GENERAL: with some sob, in no apparent distress. CARDIOVASCULAR: Regular rate and regular rhythm without murmurs, gallops, or rubs. RESPIRATORY: Clear to auscultation. Breath sounds equal bilaterally. No wheezes , rales, or rhonchi. GASTROINTESTINAL: Abdomen soft, non-tender, nondistended. Normal, active bowel sounds MUSCULOSKELETAL: Extremities without clubbing, cyanosis, or edema. NEURO: Alert & Oriented x4 to person, place, time, situation. Moves all ext x4 Procedures esquivel insertion and urethral dilatation Medications and IVs Current Medications IV Flush (NS Flush) 2 ml UNSCH PRN IVF FLUSH AFTER USING IV ACCESS; Start 11/16 at 07:45; Stop 11/16/16 at 08:51; Status DC Nitroglycerin (Nitrostat Sl) 0.4 mg Q5M PRN SL CHEST PAIN; Start 11/16/16 at 07 :45; Stop 11/16/16 at 11:41; Status DC Furosemide (Lasix Inj) 40 mg ONCE ONCE IV PUSH ; Start 11/16/16 at 08:00; Stop 11/16/16 at 08:00; Status DC Potassium Chloride (KCl) 60 meq ONCE ONCE PO Last administered on 11/16/16 09 :44; Start 11/16/16 at 08:00; Stop 11/16/16 at 08:01; Status DC Furosemide (Lasix Inj) 40 mg ONCE ONCE IV PUSH Last administered on 11/16/16 09:44; Start 11/16/16 at 08:45; Stop 11/16/16 at 08:46; Status DC IV Flush (NS Flush) 2 ml BID IVF Last administered on 11/19/16 08:42; Start at 09:00 IV Flush (NS Flush) 2 ml UNSCH PRN IVF FLUSH AFTER USING IV ACCESS Last administered on 11/16/16 18:33; Start 11/16/16 at 08:45 Furosemide (Lasix Inj) 40 mg BID@18 IVP Last administered on 11/18/16 08:41 ; Start 11/16/16 at 18:00; Stop 11/18/16 at 14:13; Status DC Potassium Chloride (KCl) 20 meq BID PO ; Start 11/16/16 at 09:00; Stop 11/16/16 at 09:08; Status DC Potassium Chloride (KCl) 20 meq BID PO Last administered on 11/19/16 08:41; Start 11/16/16 at 21:00 Aspirin (Ecotrin Ec) 325 mg DAILY PO Last administered on 11/19/16 08:41; Start 11/16/16 at 09:15 Lisinopril (Prinivil) 20 mg DAILY PO Last administered on 11/18/16 08:41; Start 11/17/16 at 09:00 Metoprolol Tartrate (Lopressor) 50 mg BID PO Last administered on 11/16/16 21: 59; Start 11/16/16 at 21:00; Stop 11/17/16 at 06:17; Status DC Warfarin Sodium (Coumadin) 4.5 mg DAILY@16 PO ; Start 11/17/16 at 16:00; Stop at 16:00; Status DC Miscellaneous Information ALL NURSING DEPARTME... UNSCH PRN XX SEE LABEL COMMENTS; Start 11/16/16 at 10:45; Stop 11/17/16 at 10:44; Status DC Patient Medication Teaching (Coumadin Booklet) 1 ONCE ONCE XX Last administered on 11/16/16 16:49; Start 11/16/16 at 16:00; Stop 11/17/16 at 07:34 ; Status DC Enoxaparin Sodium (Lovenox Inj) 100 mg ONCE ONCE SQ Last administered on 12:33; Start 11/16/16 at 11:30; Stop 11/16/16 at 11:40; Status DC Nitroglycerin (Nitrostat Sl) 0.4 mg Q5M PRN SL CHEST PAIN; Start 11/16/16 at 11 :30 Ondansetron HCl (Zofran Inj) 4 mg Q6HR PRN IV PUSH NAUSEA OR VOMITING Last administered on 11/17/16 18:05; Start 11/17/16 at 06:15 Metoprolol Tartrate 50 mg 50 mg BID PO Last administered on 11/19/16 10:14; Start 11/17/16 at 06:30 Heparin Sodium/ Dextrose (Heparin-D5W Inj) 250 ml @ 0 mls/hr TITRATE IV ; Start 11/17/16 at 06:30; Stop 11/17/16 at 07:34; Status DC Enalaprilat (Vasotec Inj) 1.25 mg Q6H PRN IV PUSH SBP> OR = 180, DBP> OR = 100 ; Start 11/17/16 at 06:30 Morphine Sulfate (Morphine Inj) 2 mg Q15M PRN IV PUSH any pain 1-10 Last administered on 11/17/16 08:14; Start 11/17/16 at 08:00 Lidocaine HCl (Xylocaine 2% Jelly) 1 applic [employer]CHING [employer] OTHER ; Start 11/17/16 at 08:45; Stop 11/18/16 at 08:44; Status DC Lidocaine HCl (Xylocaine 2% Jelly) 5 ml ONCE ONCE TOPICAL ; Start 11/17/16 at 09:15; Stop 11/17/16 at 09:16; Status DC Acetaminophen 1000 mg 1,000 mg Q12H PRN IV TEMPERATURE > 101.1 F Last administered on 11/18/16 12:02; Start 11/17/16 at 09:45 Levofloxacin/ Dextrose 100 ml @ 100 mls/hr Q24H IV Last administered on 12:02; Start 11/17/16 at 12:00; Stop 11/18/16 at 12:55; Status DC Heparin Sodium/ Dextrose (Heparin-D5W Inj) 250 ml @ 0 mls/hr TITRATE IV Last administered on 11/17/16 21:57; Start 11/17/16 at 22:00; Stop 11/18/16 at 14:13 ; Status DC Heparin Sodium (Porcine) (Heparin Inj) 5,000 units UNSCH PRN IV aPTT less than 25; Start 11/17/16 at 22:00; Stop 11/18/16 at 14:13; Status DC Heparin Sodium (Porcine) 2500 units 2,500 units UNSCH PRN IV aPTT 25 to 39; Start 11/17/16 at 22:00; Stop 11/18/16 at 14:13; Status DC Sodium Chloride 500 ml @ 30 mls/hr [id number] ONCE IV Last administered on 11:15; Start 11/18/16 at 11:15; Stop 11/19/16 at 03:54; Status DC Levofloxacin/ Dextrose (Levaquin 250 Mg Premix Inj) 50 ml @ 100 mls/hr Q24H IV ; Start 11/19/16 at 12:00 Albuterol/ Ipratropium (Duoneb Neb) 1 ampule Q6HR NEB NEB Last administered on 11/19/16 08:24; Start 11/18/16 at 16:00 Albuterol/ Ipratropium (Duoneb Neb) 1 ampule Q4HR NEB PRN NEB SOB/WHEEZING; Start 11/18/16 at 13:45 Furosemide 40 mg 40 mg DAILY IVP Last administered on 11/19/16 08:42; Start at 09:00 Dopamine HCl/ Dextrose 500 ml @ As Directed STK-MED ONCE .ROUTE ; Start at 15:53; Stop 11/18/16 at 15:54; Status DC Dopamine HCl/ Dextrose 500 ml @ 0 mls/hr TITRATE IV Last administered on 16:15; Start 11/18/16 at 16:45 Sodium Chloride (NS 1000 ml Inj) 1,000 ml @ 999 mls/hr Q1H1M ONCE IV Last administered on 11/18/16 15:35; Start 11/18/16 at 18:00; Stop 11/18/16 at 19:00 ; Status DC Lorazepam (Ativan Inj) 1 mg Q1H PRN IV SEE LABEL COMMENTS; Start 11/18/16 at 19 :30 Lorazepam (Ativan Inj) 2 mg Q1H PRN IV SEE LABEL COMMENTS; Start 11/18/16 at 19 :30 A/P Assessment and Plan A/P -STEMI Continue aspirin, beta maki, nitroglycerin as needed, IRMA inhibitor. -cardiology follow-up appreciated. Acute on chronic diastolic congestive heart failure Chest x-ray does show signs of mild congestive failure Continue diuresis Continue IRMA inhibitor echo with EF 35-40% and mild to moderate aortic stenosis Hematuria s/p esquivel cath insertion and urethral dilatation in OR urology follow-up appreciated; voiding trial as outpatient. UTI continue antibiotic - monitor temps CXR with improved CHF acute kidney injury decreased the dose of diuretics as noted above. Chronic atrial fibrillation, rate controlled Resumed beta maki - cardiology following. Hypertension -Resumed home medications DVT prevention -SCD's Discharge Planning dc home with hospice. see med list. d/w the patient and . d/w hospice. time spent 32 min. Milad Gates MD Nov 19, 2016 10:34
[2016-11-19] MEDS ORDERED: LEVA250T PO (10:36)
--- NOTE | 2016-11-19 10:37 | HHI.DCPOC ---
Discharge Care Plan Diagnosis: (1) Dyspnea (2) Acute on chronic diastolic congestive heart failure Your Health Problems Are: Chest Pain Shortness of Breath Goals to Promote Your Health * To prevent worsening of your condition and complications * To maintain your health at the optimal level Directions to Meet Your Goals Take your medications as prescribed Follow your dietary instruction Follow activity as directed Keep your appointments as scheduled Take your immunizations and boosters as scheduled If your symptoms worsen call your PCP, if no PCP go to Urgent Care Center or Emergency Room Smoking is Dangerous to Your Health. Avoid second hand smoke Call the 24-hour hour crisis hotline for domestic abuse at Milad Gates MD Nov 19, 2016 10:37
--- NOTE | 2016-11-19 10:38 | HHI.DS ---
Discharge Summary Admission Date Nov 16, 2016 at 08:40 Discharge Date: Nov 19, 2016 Admitting Diagnosis Chest pain (1) Chest pain ICD Code: R07.9 Diagnosis: Principal (2) Acute on chronic diastolic congestive heart failure ICD Code: I50.33 Diagnosis: Principal (3) Elevated troponin ICD Code: R79.89 Diagnosis: Principal (4) Lower extremity edema ICD Code: R60.0 Diagnosis: Secondary (5) Atrial fibrillation ICD Code: I48.91 Diagnosis: Secondary (6) Hypertension ICD Code: I10 Diagnosis: Secondary (7) Hyperlipidemia ICD Code: E78.5 Diagnosis: Secondary Procedures esquivel insertion and urethral dilatation Brief History - From Admission 86-year-old male with known history of hypertension, hyperlipidemia, chronic atrial fibrillation, history of prostate cancer, history of CVA, gastroesophageal reflux who presented to hospital because of chest pain. Patient does have rather complex cardiac history in which he usually does not leave the house on a daily basis. Usually sits in his chair throughout the day , sleeps in bed. They do have a healthcare attendant that is their on a daily basis. Apparently this morning at approximately 6 AM the patient was watching the news and started developing a pressure type sensation in left part of his chest with associated nausea. Patient denies any vomiting, diaphoresis, radiation of discomfort. Patient describes the pain as a 2/10 on a pain scale. Patient has shortness of breath all the time so he could not indicate it is associated with his chest discomfort. However he has had worsening shortness of breath over the last week. Patient has chronically swollen lower extremities in which he cannot indicated they have gotten larger. Patient denies any orthopnea, could not indicate any worsening dyspnea on exertion. Patient was brought to the hospital by family member. Had evaluation done which does show signs of congestive heart failure, elevated troponin. ER physician did contact patient's emergency room physician Dr. Khanna, who recommended patient be admitted at [facility] for possible cardiac catheterization. At the time evaluating the patient he still has shortness of breath. He is no longer experiencing chest discomfort. That resolved once he got to the hospital. CBC/BMP: 11/18/16 0204 11/18/16 0204 Significant Findings Laboratory Tests Test 11/16/16 11/16/16 11/17/16 11/17/16 14:15 20:25 03:55 06:25 Troponin I 0.59 NG/ML 0.51 NG/ML (0.02-0.05) (0.02-0.05) Red Blood Count 4.41 MIL/MM3 (4.50-5.90) Red Cell Distribution Width 17.5 % (11.6-17.2) Platelet Count 128 TH/MM3 (150-450) Neutrophils (%) (Auto) 77.9 % (16.0-70.0) Prothrombin Time 18.1 SEC (9.8-11.6) Chloride Level 108 MEQ/L (98-107) Blood Urea Nitrogen 22 MG/DL (7-18) Estimat Glomerular Filtration 53 ML/MIN (>89) Rate Random Glucose 108 MG/DL (74-106) Blood Gas HCO3 19 mmol/L (22-26) Blood Gas Base Excess -4.1 mmol/L (-2-2) Blood Gas Oxygen Saturation 89 % (90-100) Arterial Blood pH 7.43 (7.380-7.420) Arterial Blood Partial 30 mmHg (38-42) Pressure CO2 Arterial Blood Partial 60 mmHg Pressure O2 (61-120) Test 11/17/16 11/17/16 11/17/16 11/18/16 08:34 12:30 19:50 02:04 Activated Partial 30.4 SEC 41.4 SEC 64.0 SEC Thromboplast Time (24.3-30.1) (24.3-30.1) (24.3-30.1) Urine Turbidity HAZY (CLEAR) Urine Protein 100 mg/dL (NEG-TRACE) Urine Occult Blood LARGE (NEG) Urine Leukocyte Esterase SMALL (NEG) Urine RBC 93 /hpf (0-3) Urine WBC 20 /hpf (0-5) Urine WBC Clumps RARE (NONE) Urine Bacteria MANY /hpf (NONE) Urine Mucus FEW /lpf (OCC) Troponin I 11.00 NG/ML (0.02-0.05) White Blood Count 12.9 TH/MM3 (4.0-11.0) Red Blood Count 3.98 MIL/MM3 (4.50-5.90) Hemoglobin 12.3 GM/DL (13.0-17.0) Hematocrit 36.3 % (39.0-51.0) Red Cell Distribution Width 17.5 % (11.6-17.2) Platelet Count 88 TH/MM3 (150-450) Neutrophils (%) (Auto) 93.0 % (16.0-70.0) Lymphocytes (%) (Auto) 1.8 % (9.0-44.0) Neutrophils # (Auto) 12.0 TH/MM3 (1.8-7.7) Lymphocytes # (Auto) 0.2 TH/MM3 (1.0-4.8) Band Neutrophils % 24 % (0-6) Neutrophils # (Manual) 12.8 TH/MM3 (1.8-7.7) Metamyelocytes 5 % (0-1) Platelet Estimate LOW (NORMAL) Ovalocytes 1+ (NORMAL) Prothrombin Time 24.8 SEC (9.8-11.6) Blood Urea Nitrogen 27 MG/DL (7-18) Creatinine 1.50 MG/DL (0.60-1.30) Estimat Glomerular Filtration 44 ML/MIN (>89) Rate Random Glucose 133 MG/DL (74-106) Calcium Level 8.4 MG/DL (8.5-10.1) Total Bilirubin 1.2 MG/DL (0.2-1.0) Direct Bilirubin 0.3 MG/DL (0.0-0.2) Indirect Bilirubin 0.9 MG/DL (0.0-0.8) Aspartate Amino Transf 83 U/L (15-37) (AST/SGOT) Alkaline Phosphatase 31 U/L (45-117) Total Protein 6.0 GM/DL (6.4-8.2) Albumin 3.0 GM/DL (3.4-5.0) Test 11/18/16 09:07 Activated Partial 49.8 SEC Thromboplast Time (24.3-30.1) Imaging Last Impressions Chest X-Ray 11/17/16 0000 Signed Impressions: Service Date/Time: Thursday, November 17, 2016 06:45 - CONCLUSION: Cardiomegaly with interstitial edema and bibasilar airspace disease, consistent with CHF. There is slight improvement on current study. Osito Gomez MD PE at Discharge GENERAL: with some sob, in no apparent distress. CARDIOVASCULAR: Regular rate and regular rhythm without murmurs, gallops, or rubs. RESPIRATORY: Clear to auscultation. Breath sounds equal bilaterally. No wheezes , rales, or rhonchi. GASTROINTESTINAL: Abdomen soft, non-tender, nondistended. Normal, active bowel sounds MUSCULOSKELETAL: Extremities without clubbing, cyanosis, or edema. NEURO: Alert & Oriented x4 to person, place, time, situation. Moves all ext x4 Hospital Course -STEMI Continue aspirin, beta maki, nitroglycerin as needed, IRMA inhibitor. -cardiology follow-up appreciated. Acute on chronic diastolic congestive heart failure Chest x-ray does show signs of mild congestive failure Continue diuresis Continue IRMA inhibitor echo with EF 35-40% and mild to moderate aortic stenosis Hematuria s/p esquivel cath insertion and urethral dilatation in OR urology follow-up appreciated.voiding trial as outpatient. UTI continue antibiotic - monitor temps CXR with improved CHF acute kidney injury decreased the dose of diuretics as noted above. Chronic atrial fibrillation, rate controlled Resumed beta maki - cardiology following. Hypertension -Resumed home medications DVT prevention -SCD's Pt Condition on Discharge: Fair Discharge Disposition: Hospice/ Home Discharge Time: <= 30 minutes Discharge Instructions DIET: Follow Instructions for: Heart Healthy Diet Activities you can perform: Regular-No Restrictions Follow up Referrals: PCP Follow-up New Medications: Levofloxacin (Levaquin) 250 Mg Tab 250 MG PO DAILY Infection Days 3 Ref 0 TAB Continued Medications: Aspirin DR (Aspirin EC) 325 Mg Tabdr 325 MG PO DAILY Ref 0 TAB Furosemide (Furosemide) 40 Mg Tab 40 MG PO DAILY #30 Ref 0 TAB Magnesium (Magnesium) 400 Mg Tab 400 MG PO DAILY Nutritional Supplement Ref 0 TAB Potassium Chloride ER (Potassium Chloride ER) 20 Meq Tab 20 MEQ PO BID Electrolyte Replacement #60 Ref 0 TAB Zinc (Zinc) 50 Mg Tab 50 MG PO DAILY Nutritional Supplement Ref 0 TAB Discontinued Medications: Benazepril (Benazepril) 20 Mg Tab 20 MG PO DAILY Blood Pressure Management #30 Ref 0 TAB Metoprolol Tartrate (Metoprolol Tartrate) 50 Mg Tab 50 MG PO BID #60 Ref 0 TAB Warfarin (Warfarin) 4 Mg Tab 4.5 MG PO DAILY Blood Clot Prevention #30 Ref 0 TAB Milad Gates MD Nov 19, 2016 10:38
[2016-11-19] MEDS ORDERED: LEVOFLOXACIN 250 MG PREMIX INJ 50 ML IV SCH (12:00)
--- NOTE | 2016-11-21 09:48 | PQ ---
Physician Query Response Document PATIENT: JUAN CARLOS HAYWOOD : 1930 ADMIT DATE: 11/16/2016 8:40 AM DISCH DATE: 11/19/2016 1:55 PM RESPONDING PROVIDER #: [email or web address] QUERY TEXT: Conflicting Documentation Clarification A single mention or documentation of multiple diagnoses for the same clinical presentation appears in the record. Please clarify the diagnosis/diagnoses. STEMI Please also document if the condition is: -- Confirmed and current -- Confirmed, treated and resolved -- Ruled out -- Other, please specify The patient's Clinical Indicators include: DISCHARGE SUMMARY AND PROCEEDING PROGRESS NOTES STATE STEMI CARDIOLOGY .Nov 17, 2016 14:34 ASSESSMENT Chest pain- NSTEMI Chest pain- troponin elevated. Demand vs ischemic. No evidence of STEMI on EKG Query created by: Regi Salcido on 11/19/2016 11:59 AM RESPONSE TEXT: NSTEMI Electronically signed by: Milad Gates MD 11/21/2016 9:45 AM
--- NOTE | 2016-11-21 22:12 | MP ---
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 Nuñez placed over a wire. SURGEON Angela Trinh MD ANESTHESIA None. FLUIDS 100 mL crystalloid. ESTIMATED BLOOD LOSS No blood loss COMPLICATIONS No complications. FINDINGS Bladder neck contracture. He tolerated the procedure well, was awaken and transferred back to the ICU. INDICATIONS Jcarlos Lopez is an 86-year-old male with history of prostate cancer who had seeds implanted and had a TUR in the past. He has a history of difficulty urinating with a weak stream and nocturia times 4 or 5 with incomplete bladder emptying. He came in with chest pain and was ruled in for an [place] and a Nuñez catheter was inserted by the staff, but it was not in the correct position and urethra trauma occurred. I attempted to place a Nuñez catheter at the bedside, but this was unsuccessful. He needed to be taken to the operating room in order to place the Nuñez catheter. PROCEDURE IN DETAIL He was brought to the operating room, identified by myself as Jcarlos Lopez. He remained on the stretcher in good position without receiving any anesthesia and no preprocedure antibiotics were given. He was prepped and draped in the usual sterile fashion. Flexible cystoscope was inserted in the bladder and once we got to the area of the bladder neck there was a bladder neck contracture. This area was small and approximately less than 1/2 cm in size. A wire was passed through the cystoscope and left in the bladder. The cystoscope was removed using ureteral dilators starting with a 5-Barbadian up to a 16-Barbadian. The bladder neck contracture was enlarged. Once that was completed, a 16-Barbadian Sag[place] tip catheter was placed in good position over the wire and that stayed in good position. The Nuñez was in good position draining clear urine at the time and he tolerated procedure well, was transferred back to the SICU. The Nuñez catheter will remain in for 10 days. Callie RUIZ/ /11:16 AM /10:02 PM
== END 2016-11-19 13:55 | disposition hospice, home (50) | DRG 280 ==
LOC: PHED 07:14 → PHEDA 08:40 → PH3A 13:19 → N03B 23:14 → N03A 11-17 07:32
PROVIDERS: ADMIT Internal Medicine; ATTEND Internal Medicine
PROC: 0T9B80Z Drainage of Bladder with Drainage Device, Via Natural or Artificial Opening Endoscopic (ICD-10-PCS; 2016-11-17)
PROC: 0T7D8ZZ Dilation of Urethra, Via Natural or Artificial Opening Endoscopic (ICD-10-PCS; principal; 2016-11-17 10:40)
DX: I21.4 Non-ST elevation (NSTEMI) myocardial infarction (principal); I50.43 Acute on chronic combined systolic (congestive) and diastolic (congestive) heart failure; N17.9 Acute kidney failure, unspecified; N39.0 Urinary tract infection, site not specified; D69.6 Thrombocytopenia, unspecified; I08.3 Combined rheumatic disorders of mitral, aortic and tricuspid valves; S37.30XA Unspecified injury of urethra, initial encounter; N13.9 Obstructive and reflux uropathy, unspecified; R31.0 Gross hematuria; I48.2 Chronic atrial fibrillation; I10 Essential (primary) hypertension; E78.5 Hyperlipidemia, unspecified; N32.0 Bladder-neck obstruction; I45.10 Unspecified right bundle-branch block; I73.9 Peripheral vascular disease, unspecified; N35.9 Urethral stricture, unspecified; K21.9 Gastro-esophageal reflux disease without esophagitis; F41.9 Anxiety disorder, unspecified; Y73.8 Miscellaneous gastroenterology and urology devices associated with adverse incidents, not elsewhere classified; Y84.6 Urinary catheterization as the cause of abnormal reaction of the patient, or of later complication, without mention of misadventure at the time of the procedure; Y92.239 Unspecified place in hospital as the place of occurrence of the external cause; Z51.5 Encounter for palliative care; Z66 Do not resuscitate; Z79.01 Long term (current) use of anticoagulants; Z86.73 Personal history of transient ischemic attack (TIA), and cerebral infarction without residual deficits; Z85.46 Personal history of malignant neoplasm of prostate; Z88.0 Allergy status to penicillin
CPT/HCPCS: 36600; 71010; 76937; 80048; 80061; 80076; 81001; 82550; 82805; 83735; 83880; 84484; 85007; 85014; 85018; 85025; 85027; 85610; 85730; 86850; 86900; 86901; 87040; 87086; 87205; 87641; 93005; 93306; 94664; J0131; J1265; J1644; J1650; J1940; J1956; J2270; J2405; J7030; J7040